=== PATIENT | female | born 1965 | race Caucasian/White ===

== ENCOUNTER 2018-05-03 15:16 | Emergency (ER) | payer BC ==
--- NOTE | 2018-05-03 16:12 | ED ---
Lower Extremity - HPI Summary HPI Summary: This is scribe Bryanna Rajan documenting for attending Ginna Pressley MD This patient is a 52 year old F presenting to [facility] accompanied by her and son with a chief complaint of right foot pain and swelling after her 100 lb son accidentally stepped on the lateral aspect of her foot while she was sleeping at 07:00 this morning. She states she heard a pop, and that the pain is at the dorsal aspect along the fourth and fifth metatarsals that radiates into the frontal aspect of the RLE. Pain is 6/10 in severity currently and is an 8/10 or 9/10 with weight bearing. She took 3 pills of Advil afterwards. She denies having any other symptoms at this time, including CP, SOB, and dizziness. I, Dr. Pressley ,personally performed the services described in this documentation as scribed in my presence and it is both accurate and complete - History of Current Complaint Chief Complaint: EDExtremityLower Stated Complaint: RT FOOT INJURY Time Seen by Provider: 05/03/18 15:30 Hx Obtained From: Patient Hx Last Menstrual Period: ~1 WEEK AGO Mechanism Of Injury: Other - son stepped on foot Onset of Pain: Immediate Onset/Duration: Still Present Severity Initially: Severe Severity Currently: Moderate Pain Intensity: 6 Pain Scale Used: 0-10 Numeric Timing: Constant Location: Is Discrete @ - dorsal aspect of right foot over forth and fifth metatrsals, radiates to front RLE Associated Signs And Symptoms: Positive: Negative Aggravating Factor(s): Weight Bearing Alleviating Factor(s): Nothing Able to Bear Weight: Yes - Allergies/Home Medications Allergies/Adverse Reactions: Allergies Allergy/AdvReac Type Severity Reaction Status Date / Time MS Azithromycin [From Z-Oni] Allergy Stomach Verified 05/03/18 15:20 Cramps PMH/Surg Hx/FS Hx/Imm Hx Previously Healthy: No Endocrine/Hematology History: Denies: Hx Anticoagulant Therapy Respiratory History: Reports: Hx Asthma - Cancer History Hx Chemotherapy: No Hx Radiation Therapy: No - Surgical History Surgery Procedure, Year, and Place: CHOLECYSTECTOMY Infectious Disease History: No Infectious Disease History: Reports: Traveled Outside the [place] in Last 30 Days - [place] - Family History Known Family History: Positive: Hypertension - both parents, Diabetes, Other - glaucoma - mother and grandfather Family History: sister - rectal CA, grandmother - vaginal CA - Social History Lives: With Family Alcohol Use: None Substance Use Type: Reports: None Smoking Status (MU): Never Smoked Tobacco Review of Systems Constitutional: Negative Negative: Chest Pain Negative: Shortness Of Breath Gastrointestinal: Negative Positive: Arthralgia, Myalgia - right foot pain Skin: Negative Neurological: Negative - dizziness Psychological: Normal All Other Systems Reviewed And Are Negative: Yes Physical Exam - Summary Physical Exam Summary: Appearance: Well-appearing, minimal pain distress, well-nourished, Skin: Warm, color reflects adequate perfusion, dry Head: Normal Head/Face inspection, atraumatic Eyes: Conjunctiva clear ENT: Normal inspection Neck: Supple, no nodes, no JVD Respiratory: Lungs clear, normal breath sounds, no respiratory distress Cardio: RRR, No murmur, pulses normal, brisk capillary refill Abdomen: Soft, nontender Bowel sounds: Present Musculoskeletal: Strength Intact/ROM intact, no calf tenderness, no edema. Tender to right 4th and 5th metatarsals. No ecchymosis. Psychological: Normal Neuro: Alert, muscle tone normal, no focal deficit Triage Information Reviewed: Yes Vital Signs On Initial Exam: Initial Vitals Temp Pulse Resp BP Pulse Ox 97.8 F 79 16 131/66 98 18 15:18 05/03/18 15:18 05/03/18 15:18 05/03/18 15:18 05/03/18 15:18 Vital Signs Reviewed: Yes Diagnostics - Vital Signs Vital Signs Temp Pulse Resp BP Pulse Ox 05/03/18 15:18 97.8 F 79 16 131/66 98 - Laboratory Lab Statement: Any lab studies that have been ordered have been reviewed, and results considered in the medical decision making process. - Radiology R FOOT XR Radiology Interpretation Completed By: Radiologist - SOFT TISSUE SWELLING, NO FRACTURE IS SEEN. ED Physician has reviewed this report. Re-Evaluation - Re-Evaluation First Re-Evaluation Time: 16:32 Change: Unchanged Comment: Informed patient of results. Pain is well controlled. Advised to follow up with Dr. Palmer as needed. Lower Extremity Course/Dx - Course Course Of Treatment: 52 year old F presenting to [facility] accompanied by her and son with a chief complaint of right foot pain and swelling after her son stepped on the lateral aspect of her foot while she was sleeping at 07: 00 this morning. An XR of the right foot is negative for fracture. Patient's pain is well controlled. She is instructed to follow up with Dr. Palmer, orthopedics, as needed. Patient will be discharged. Patient is agreeable. - Diagnoses Differential Diagnosis/HQI/PQRI: Positive: Contusion, Fracture (Closed), Sprain , Strain Provider Diagnoses: Contusion of right foot Discharge - Sign-Out/Discharge Documenting (check all that apply): Patient Departure - Discharge Plan Condition: Stable Disposition: HOME Patient Education Materials: Foot Sprain (ED) Referrals: Lesly Palmer MD [Medical Doctor] - If Needed Edward Villalpando EMBEDDER [Primary Care Provider] - 2 Days Additional Instructions: You may use ice, elevation and rest to help your right foot. You may continue ibuprofen as directed for pain. We have given you an ru bandage and a post op shoe. You may bear weight as tolerated. If your pain persists more than 2-3 days you should be re-evaluated by Bambi Villalpando or Dr. Palmer (orthopedist). Return to the ER if you have new or worsening symptoms. - Billing Disposition and Condition Condition: STABLE Disposition: Home
--- NOTE | 2018-05-03 16:21 | RAD ---
INDICATION: Right foot injury. TECHNIQUE: 3 views of the right foot were obtained. FINDINGS: There is dorsal and lateral soft tissue swelling. The bones are in normal alignment. No fracture is seen. Joint spaces appear maintained. IMPRESSION: SOFT TISSUE SWELLING, NO FRACTURE IS SEEN.
[2018-05-03 17:39] VITALS: BP 0/0
== END 2018-05-03 17:00 | disposition home or self-care (01) ==
LOC: ED 15:16
DX: S90.31XA Contusion of right foot, initial encounter (principal); W50.0XXA Accidental hit or strike by another person, initial encounter; Y93.84 Activity, sleeping; Y92.9 Unspecified place or not applicable; Z88.3 Allergy status to other anti-infective agents
CPT/HCPCS: 99281

== ENCOUNTER 2019-02-19 15:29 | Emergency (ER) | payer BC ==
[2019-02-19 16:05] VITALS: BP 129/83
[2019-02-19] MEDS ORDERED: Acetaminophen TAB* 325 MG PO ONE (16:28)
--- NOTE | 2019-02-19 16:28 | UC ---
Throat Pain/Nasal Aj HPI - HPI Summary HPI Summary: This patient is a 53-year-old female who presents to the urgent care with chief complaint of having sore throat, fevers, body aches since this morning. Patient denies any headache, denies any neck pain, denies any sinus congestion and occasionally she reports a dry cough. She also reports that she has a history infection for which the patient is already taking Monistat. However, she reports that she has an a slight burning with urination. She denies any back pain, denies any nausea vomiting. Patient has no other complaints. - History of Current Complaint Chief Complaint: UCGeneralIllness Stated Complaint: FEVER, ACHES Time Seen by Provider: 02/19/19 16:14 Hx Obtained From: Patient Hx Last Menstrual Period: ~1 WEEK AGO Severity: Moderate Pain Intensity: 7 - Allergies/Home Medications Allergies/Adverse Reactions: Allergies Allergy/AdvReac Type Severity Reaction Status Date / Time azithromycin Allergy Stomach Verified 02/19/19 16:05 Cramps Home Medications: Home Medications Ibuprofen TAB* [Motrin TAB* 600 MG] 600 mg PO Q6H PRN 02/19/19 [History Confirmed 02/19/19] PMH/Surg Hx/FS Hx/Imm Hx Previously Healthy: Yes GI/ History: Gastroesophageal Reflux Other History Of: Negative For: Anticoagulant Therapy - Surgical History Surgical History: Yes Surgery Procedure, Year, and Place: CHOLECYSTECTOMY, c-sec, ovarian cyst - Family History Known Family History: Positive: Hypertension - both parents, Diabetes, Other - glaucoma - mother and grandfather Family History: sister - rectal CA, grandmother - vaginal CA - Social History Alcohol Use: Rare Substance Use Type: None Smoking Status (MU): Never Smoked Tobacco Review of Systems All Other Systems Reviewed And Are Negative: Yes Constitutional: Positive: Negative Skin: Positive: Negative Eyes: Positive: Negative ENT: Positive: Sore Throat Respiratory: Positive: Negative Cardiovascular: Positive: Negative Gastrointestinal: Positive: Negative Genitourinary: Positive: Negative Motor: Positive: Negative Neurovascular: Positive: Negative Musculoskeletal: Positive: Negative Neurological: Positive: Negative Psychological: Positive: Negative Is Patient Immunocompromised?: No Physical Exam - Summary Physical Exam Summary: Vital signs: Reviewed Gen.: Patient is a obese female in no acute distress. Patient is sitting comfortably on the stretcher. Head: Normacephalic and atraumatic Eyes: PERRLA, EOMI x2. Ears: Right ear canal and TM WNL Left ear canal and TM WNL Nose Nose with dry mucosa and clear discharge. No sinus tenderness and mouth: positive pharyngeal erythema with no exudate. Neck: Supple, No JVD Lungs: CTA B/L CVS: S1 & S2 present. No murmurs appreciated. ABDOMEN: Soft NT w/ positive BS. EXT: FROM x 4 NEURO: A+O X 3 Triage Information Reviewed: Yes Appearance: Well-Appearing, No Pain Distress, Well-Nourished Vital Signs: Initial Vital Signs Temp 99.1 F 02/19/19 16:00 Pulse 101 02/19/19 16:00 Resp 18 02/19/19 16:00 BP 129/83 02/19/19 16:00 Pulse Ox 99 02/19/19 16:00 Throat Pain/Nasal Course/Dx - Course Course Of Treatment: Urinalysis with positive leukocytes. Rapid strep is negative. Therefore believe that the patient has a UTI, the patient will be given a prescription for Bactrim. She will be discharged home with follow-up with primary care physician. She was instructed to increase her water intake. She was also instructed to go to the emergency room if the symptoms worsen. The patient understands and agrees. - Differential Dx/Diagnosis Provider Diagnosis: UTI (urinary tract infection) Discharge - Sign-Out/Discharge Documenting (check all that apply): Patient Departure All imaging exams completed and their final reports reviewed: No Studies - Discharge Plan Condition: Stable Disposition: HOME Prescriptions: Sulfamethox/Trimethoprim DS* [Bactrim DS 800/160 TAB*] 1 tab PO BID #14 tab Patient Education Materials: Urinary Tract Infection in Women (ED) Referrals: Edward Villalpando, [employer] [Primary Care Provider] - Additional Instructions: Take medications as instructed Increase your fluid intake F/U with PCP in the next 2-3 days Return to the UC if symptoms worsen - Billing Disposition and Condition Condition: STABLE Disposition: Home
== END 2019-02-19 17:12 | disposition home or self-care (01) ==
LOC: UCEAST 15:29
DX: N39.0 Urinary tract infection, site not specified (principal); Z88.1 Allergy status to other antibiotic agents
CPT/HCPCS: 81003; 84702; 87086; 87651; 99212; A9270-GY; G0463

== ENCOUNTER 2019-03-29 12:16 | Emergency (ER) | payer BC ==
--- OUTSIDE RECORDS SUMMARY | 2019-03-29 12:25 | XMS REPORT | Continuity of Care Document ---
:1965 External Reference #:[id number] Author Name PAOLO Garcia Address [address] [place] [address] Care Team Providers Name Role Phone PAOLO Garcia Care Team Information Survey And Mapping Technician Unavailable Payers Date Identification Numbers Payment Provider Subscriber Effective: 2009 Policy Number: [id number] [employer] Expires: 2012 Group Name: Ryan Ocononr P.[address]anish[address] [address] PayID: [id number] GEMINI Jean Baptiste [id number] Effective: 2012 Policy Number: [id number] [employer] Group Name: Ryan Skinnero PTanishaOTanisha [address] [address] PayID: [id number] GEMINI Jean Baptiste [id number] Problems Active Problems Provider Date Acute stress disorder PAOLO Garcia Onset: 12/13/2011 Social History Type Date Description Comments Sex Unknown Lives With Son Lives With Spouse Diet Healthy, Well Balanced gave up sweets and ice cream, limits her red meat Pets 1 cat Occupation Unemployed 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 anita Potassium day for 10 days Storm, [employer] for infection 875-125mg Tablets Valtrex 1 by mouth twice a 14tabs B00.9 [facility] 03/[facility]2019 1gm Tablets day for 7 days if Storm, [employer] needed for cold sores Fluconazole 1 by mouth now, 2tabs [facility] 03/24/2019 150mg may repeat in 1 Storm, [employer] Tablets week if sx still present Albuterol Sulfate use one vial in 90ml J20.9 [facility] R. 03/16/2019 nebulizer every 4 Storm, [employer] (2.5mg/3ML) 0.083% hours if needed Nebulizer for breathing Nebulizer use to deliver 2units J20.9 [facility]. 03/16/2019 Kit/Tubing/Mouthpie albuterol via Storm, [employer] ce nebulizer four Kit times a day Flovent Diskus inhale one puff by 60units J18.9 [facility] 08/15/2017 mouth twice daily [facility], [employer] 100mcg/Blist as directed - Aerosol rinse mouth after use Spacer use as directed 1units J18.9 Karolyn P. 08/15/2017 for albuterol Camelia Rooney inhaler Ventolin HFA inhale two puffs 8.5units J20.9 [facility] R. 08/07/2017 by mouth every 4 Storm, [employer] 108(90Base) mcg/Act hours as needed Aerosol for wheeze Benzonatate 1 by mouth three 45caps J20.9 [facility] 08/07/2017 200mg times a day for Storm, [employer] Capsules cough Advil PM prn Shawnti R. 04/29/2014 200-25mg Storm, [employer] Capsules Zantac 1 by mouth bid for Shawnti R. 04/29/2014 150mg heart burn Storm, [employer] Tablets Vitamin D3 1 by mouth every Unknown 1000Unit day for vit d Tablets deficiency History Medications Fluconazole 1 by mouth now, 2tabs B37.3 [facility] R. 03/16/2019 - 150mg Tablets may repeat in 1 [facility] 03/23/2019 week if sx still present Nystatin apply small 30gm B37.3 [facility] R. 03/16/2019 - 517471Icvm/GM amount to vulva [facility] 03/23/2019 Cream three times daily until resolved Prednisone one pill by mouth 5tabs J20.9 [facility] R. 03/16/2019 - 50mg [facility] for [facility] Doxycycline Hyclate 1 take by mouth 20caps J01.90 [facility] 11/30/2018 - 100mg capsule 2 times MD Yolanda 03/24/2019 Capsules per day for 10 days for infection Prednisone 1 tab by mouth 4tabs J01.90 [facility] 11/30/2018 - 50mg Tablets daily for 4 days MD Yolanda 03/16/2019 Augmentin 1 take by mouth 20tabs J01.90 [facility] 11/23/2018 - 875-125mg tablet every 12 MD Yolanda 11/30/2018 Tablets hours for 10 days for infection Fluoxetine HCL (PMDD) 1 by mouth every 90caps Edward R. 04/27/2018 - morning [facility] 03/24/2019 10mg Capsules Nystatin 5 milliliters 200ml Karolyn Olivas 08/16/2017 - 477672Fkyd/ML swish and swallow Blegen M.D. 04/27/2018 Suspension four times a day x 7-10 days for thrush- please fill now Levofloxacin 1 tab by everyday 8tabs J18.9 Karolyn P. 08/15/2017 - 500mg for 8 days for Blegen, M.D. 11/14/2017 Tablets pneumonia Doxycycline Hyclate 1 by mouth twice 20caps J20.9 [facility] R. 08/07/2017 - 100mg a day for 10 days [facility] 08/15/2017 Capsules Penicillin V Potassium 1 tab by mouth 30tabs J02.0 [facility]ti R. 03/31/2017 - three times a day [facility] 04/10/2017 500mg Tablets x 10 days Penicillin V Potassium 1 tab by mouth 30tabs J02.0 Ching 01/08/2017 - three times a day Rojas, 03/31/2017 500mg Tablets x 10 days [employer] Amoxicillin 1 tablet twice a 20tabs J02.0 [facility] 12/24/2016 - 875mg Tablets day x 10 days Rojas, 01/08/2017 [employer] Augmentin 1 by mouth twice 20tabs J18.9 [facility] R. 06/20/2016 - 875-125mg a day for [facility], [employer] 06/30/2016 Tablets infection Benzonatate 1 by mouth three 30caps J18.9 [facility] 06/20/2016 - 200mg times a day for Storm, [employer] 03/31/2017 Capsules cough Xyzal 1by mouth every 90tabs J30.9 [facility] R. 05/30/2016 - 5mg Tablets day [facility], [employer] 11/14/2017 Sonata 1 po QHS if 30caps G47.00 [facility] R. 04/26/2016 - 5mg Capsules needed for sleep [facility], [employer] 12/24/2016 Benzonatate 1 by mouth three 30caps J06.9 [facility] R. 04/26/2016 - 200mg times a day for [facility], [employer] 05/06/2016 Capsules cough Sulfacetamide Sodium 2 drops both eyes 1bottle 372.03 [facility] RTanisha 2014 - 10% 4 times daily for Kwasi, [employer] 04/26/2016 Solution 5 days Nasonex 2 sprays each 17gm J30.9 [facility] 01/24/2015 - 50mcg/Act nostril daily for Roajs, 11/14/2017 Suspension rhinitis [employer] Sulfamethoxazole/Trime 1 by mouth twice 10tabs 599.0 Namelizabeth RTanisha 2014 - thoprim DS a day for [facility], [employer] 12/04/2014 800-160mg infection, take Tablets for 5 days Pyridium 1 by mouth three 30tabs 599.0 Namwntmara RTanisha 11/24/2014 - 100mg Tablets times a day as [facility], [employer] 01/24/2015 needed bladder and kidney pain Fluoxetine HCL 1 by mouth every 90caps F33.0 [facility] R. 11/24/2014 - 20mg day [facility] 12/24/2016 Capsules Augmentin 1 by mouth twice 20tabs 486 [facility] R. 10/31/2014 - 875-125mg a day for [facility], [facility] 11/10/2014 Tablets infection Benzonatate 1 by mouth three 30caps 486 [facility] R. 10/31/2014 - 200mg times a day for [facility], [facility] 11/10/2014 Capsules cough Amoxicillin 1 by mouth three 30tabs 461.8 [facility] 08/04/2014 - 500mg Tablets times a day for [facility], [facility] 08/14/2014 10 days for infection Claritin 1 by mouth daily J30.9 [facility] R. 04/29/2014 - 10mg Capsules for allergies prn [facility] 05/30/2016 Finacea apply to face [facility] 04/29/2014 - 15% Gel daily for rosacea [facility], [facility] 01/24/2015 Lutein 20 2 daily [facility] R 04/29/2014 - Capsules [facility] 04/26/2016 Ammonium Lactate apply to feet [facility] R 04/29/2014 - 12% every night at [facility] 12/24/2016 Cream bedtime if needed Nystatin-Triamcinolone apply small 30gm 616.10 [facility] R 04/16/2014 - amount to [facility] 04/26/2016 876756-1.1Unit/GM-% affected are Ointment three times daily until resolved Lanicaine [facility] to affected [facility] 10/05/2012 - area as needed [facility] 04/29/2014 Nabumetone take one pill 30tabs 723.1 [facility] R 06/16/2012 - 750mg Tablets daily with food [facility] 04/29/2014 for neck pain Cyclobenzaprine HCL 1/2 or 1 po QHS 15tabs 723.1 [facility] R 05/21/2012 - 10mg prn muscle spasm [facility] 06/16/2012 Tablets Prozac take one capsule 90caps 311 [facility]. 04/20/2012 - 10mg Capsules by mouth every [facility], [facility] 04/29/2014 morning for anxiety and stress Amoxicillin 1 po tid for 30caps [facility] R. 03/10/2012 - 500mg infection [facility], [facility] 04/20/2012 Capsules Guaifenesin/Codeine 1-2 tsp po q6hrs 150ml Edward R. 03/05/2012 - prn cough [facility], [facility] 04/20/2012 100-10mg/5ML Syrup Alprazolam 1/2 or 1 po tid 30thirty 300.00 Edward R. 12/20/2011 - 0.25mg Tablets prn anxiety [facility], [facility] 10/05/2012 Gentamicin Sulfate 1 cm ribbon qid 1tube 373.11 Edward R. 10/28/2011 - 0.1% left eye for 5 [facility], [facility] 04/20/2012 Ointment days or until resolved Meclizine HCL 1 po q6hr prn 30tabs 386.10 [facility] R. 10/01/2011 - 25mg dizziness [facility], [facility] 10/05/2012 Tablets Melatonin CR qhs [facility] R. 09/30/2011 - 3mg Tablets [facility], [facility] 10/05/2012 ER Omeprazole 1 po qd-ac for 30caps 786.51 Edward RTanisha 07/18/2011 - 20mg Capsules stomach acid [facility], [facility] 04/29/2014 Alprazolam 1/2 or 1 po bid 20twenty 300.00 Namwntmara R. 03/26/2011 - 0.25mg Tablets prn anxiety [facility], [facility] 12/20/2011 Nystatin/Triamcinolone apply pea sized 1tube 625.70 Edward RTanisha 03/07/2011 - amount to [facility], [facility] 10/05/2012 038354-7.1Unit/GM-% affected area bid Cream prn itching Nystatin apply to affected 1bottle 112.89 Edward RTanisha 03/07/2011 - 462312Lgea/GM area tid until Storm, [facility] 10/05/2012 Powder resolved Robitussin ac 1-2 tsp po q4-6hr 150ml 466.0 Shawnti R. 02/08/2011 - prn cough/pain Storm, [facility] 04/20/2012 Tessalon Perles 1 po tid prn 30caps 466.0 [facility]ti R. 02/08/2011 - 100mg cough Storm, [facility] 04/20/2012 Capsules Amoxicillin/Potassium 1 po bid for 20tabs 466.0 [facility] R. 02/04/2011 - Clavulanate infection Storm, [facility] 02/14/2011 875-125mg Tablets Tessalon Perles 1 po tid prn 30caps 466.0 Shawnti R. 08/10/2010 - 100mg cough Storm, [facility] 10/15/2010 Capsules Prozac 1 po qd 90caps 311 Shawnti R. 08/10/2010 - 20mg Capsules [facility], [facility] 04/20/2012 Amoxicillin/Potassium 1 po bid for 20tabs 466.0 Shawnti R. 08/06/2010 - Clavulanate infection Storm, [facility] 08/16/2010 875-125mg Tablets Amoxicillin/Potassium 1 po bid for 20tabs 466.0 Shawnti R. 06/11/2010 - Clavulanate bronchitis Storm, [facility] 06/21/2010 875-125mg Tablets Robitussin ac 1-2 tsp po q4-6hr 150ml 466.0 Shawnti R. 06/11/2010 - prn cough/pain Storm, [facility] 08/16/2010 Benzonatate 1 po tid prn 30caps 465.9 [facility]ti R. 11/24/2009 - 100mg cough Storm, [facility] 12/04/2009 Capsules Ofloxacin 1 po bid for 20tabs 466.0 Shawnti R. 10/12/2009 - 400mg Tablets bronchial Storm, [facility] 10/22/2009 pneumomonia, replaces doxycycline, take for 10 days Nystatin apply to affected 2Bottles 782.1 [facility]ti R. 10/12/2009 - 764129Sboi/GM area tid until Kwasi [facility] 10/05/2012 Powder resolved Robitussin ac 1-2 tsp po q4-6hr 150ml 466.0 [facility] R. 10/12/2009 - prn cough/pain K[facility] 10/22/2009 Apri 1 po daily [facility] R. 10/09/2009 - 0.15-30mg-mcg [facility] 10/05/2012 Tablets Doxycycline Hyclate 1 po bid for 20caps 466.0 [facility] R. 10/09/2009 - 100mg infection [facility] 10/12/2009 Capsules Ventolin HFA 1 puff q4hr prn 1units 466.0 [facility]. 10/09/2009 - 108(90Base) cough, wheeze, Kwasi [facility] 08/07/2017 mcg/ac Aerosol shortness of breath No Work no work until 466.0 [facility]. 10/09/2009 - feeling better Kwasi [facility] 10/19/2009 and fever free for at least 24 hours, will likely miss several days Ergocalciferol Tablets 1 po twice weekly 8tabs [facility] R. 08/15/2009 - for vitamin d [facility] 10/09/2009 50,000Units Tablets deficiency, repeat level in 4 weeks Valtrex 1 by mouth twice 14tabs B00.9 [facility] R. 08/10/2009 - 1gm Tablets a day for 7 days [facility] 04/27/2018 if needed for cold sores Fluoxetine HCL (PMDD) 1 by mouth daily 90caps [facility] R. - for anxiety and [facility] 04/27/2018 20mg Capsules depression Zinc Unknown - 30mg Capsules 03/24/2019 Immunizations CPT Code Status Date Vaccine Lot # [id number] Given 10/09/2017 Influenza Virus Vaccine, Quadrivalent, 3 Yr > Quad, Preserv Free 25863 Given 07/01/2014 Influenza Virus Vaccine, Quadrivalent, 3 Yr > [id number] Quad, Preserv Free 11688 Given 07/18/2011 Influenza Vaccine-Preservative Free 3 Yrs And [id number] Above 31708 Given 07/24/2010 Influenza Vaccine-Preservative Free 3 Yrs And [id number] Above 71693 Given 09/25/2009 Tdap (Adacel) [id number] Refused 01/09/2016 Influenza Virus Vaccine, Quadrivalent, 3 Yr > Quad , Preserv Free Vital Signs Date Vital Result Comment 03/24/2019 11:44am Weight 235.00 lb Weight 106.596 kg BP Systolic 122 mmHg BP Diastolic 80 mmHg Heart Rate 86 /min Body Temperature 99.1 F Respiratory Rate 18 /min O2 % BldC Oximetry 98 % 03/16/2019 4:45pm Weight 233.00 lb Weight 105.689 kg BP Systolic 130 mmHg BP Diastolic 80 mmHg Heart Rate 116 /min Body Temperature 102.2 F Respiratory Rate 20 /min O2 % BldC Oximetry 96 % 11/30/2018 4:19pm Weight 238.25 lb Weight 108.070 kg BP Systolic 112 mmHg BP Diastolic 78 mmHg Heart Rate 86 /min Body Temperature 97.4 F Respiratory Rate 16 /min O2 % BldC Oximetry 97 % 11/23/2018 8:47am Weight 240.00 lb Weight 108.864 kg BP Systolic 110 mmHg BP Diastolic 70 mmHg Heart Rate 78 /min Body Temperature 97.6 F Respiratory Rate 16 /min O2 % BldC Oximetry 98 % 04/27/2018 4:13pm Weight 228.00 lb Weight 103.421 kg BP Systolic 108 mmHg BP Diastolic 78 mmHg Heart Rate 96 /min Body Temperature 98.1 F 11/14/2017 9:51am Weight 226.00 lb Weight 102.514 kg BP Systolic 112 mmHg BP Diastolic 80 mmHg Body Temperature 9637.3 F Height 63 inches 5'3" BMI (Body Mass Index) 40.0 kg/m2 08/15/2017 12:13pm Weight 233.00 lb Weight 105.689 kg BP Systolic 128 mmHg BP Diastolic 74 mmHg Heart Rate 100 /min Body Temperature 99.8 F Respiratory Rate 20 /min 08/07/2017 9:30am Weight 233.00 lb Weight 105.689 kg BP Systolic 133 mmHg BP Diastolic 80 mmHg Heart Rate 104 /min Body Temperature 98.7 F O2 % BldC Oximetry 97 % 03/31/2017 4:01pm Weight 244.00 lb Weight 110.678 kg Heart Rate 95 /min Body Temperature 97.0 F Respiratory Rate 16 /min O2 % BldC Oximetry 99 % 01/08/2017 10:23am Weight 239.00 lb Weight 108.410 kg BP Systolic 120 mmHg BP Diastolic 80 mmHg Heart Rate 102 /min Body Temperature 98.7 F Respiratory Rate 16 /min O2 % BldC Oximetry 98 % 12/24/2016 9:01am Weight 240.00 lb Weight 108.864 kg BP Systolic 138 mmHg BP Diastolic 96 mmHg Heart Rate 119 /min Body Temperature 101.8 F Respiratory Rate 18 /min O2 % BldC Oximetry 97 % 06/20/2016 1:34pm Weight 240.00 lb Weight 108.864 kg BP Systolic 117 mmHg BP Diastolic 80 mmHg Heart Rate 112 /min Body Temperature 98.2 F O2 % BldC Oximetry 98 % 05/30/2016 4:16pm Weight 238.00 lb Weight 107.957 kg BP Systolic 112 mmHg BP Diastolic 68 mmHg Heart Rate 86 /min Body Temperature 98.6 F Respiratory Rate 18 /min O2 % BldC Oximetry 98 % 04/26/2016 8:44am Weight 239.00 lb Weight 108.410 kg BP Systolic 110 mmHg BP Diastolic 90 mmHg Heart Rate 98 /min Height 62.5 inches 5'2.50" BMI (Body Mass Index) 43.0 kg/m2 Last Menstrual Period [id number] O2 % BldC Oximetry 98 % 01/09/2016 10:33am Weight 236.00 lb Weight 107.050 kg BP Systolic 126 mmHg BP Diastolic 90 mmHg Heart Rate 68 /min 10/16/2015 9:28am Weight 238.00 lb Weight 107.957 kg BP Systolic 117 mmHg BP Diastolic 79 mmHg Heart Rate 88 /min Body Temperature 99.0 F 02/16/2015 11:04am Weight 236.00 lb Weight 107.050 kg BP Systolic 120 mmHg BP Diastolic 80 mmHg Heart Rate 91 /min Body Temperature 97.8 F O2 % BldC Oximetry 98 % 01/24/2015 9:51am Weight 235.00 lb Weight 106.596 kg BP Systolic 120 mmHg BP Diastolic 80 mmHg Heart Rate 94 /min Body Temperature 97.7 F O2 % BldC Oximetry 98 % 11/24/2014 9:16am Weight 232.00 lb Weight 105.235 kg BP Systolic 118 mmHg BP Diastolic 80 mmHg Heart Rate 76 /min Body Temperature 97.7 F Last Menstrual Period [id number] 10/31/2014 10:56am Weight 231.00 lb Weight 104.782 kg BP Systolic 120 mmHg BP Diastolic 80 mmHg Heart Rate 94 /min Body Temperature 98.0 F O2 % BldC Oximetry 98 % 08/04/2014 9:21am Weight 231.00 lb Weight 104.782 kg BP Systolic 120 mmHg BP Diastolic 70 mmHg Heart Rate 92 /min Body Temperature 98.9 F O2 % BldC Oximetry 98 % 04/29/2014 8:50am Weight 224.00 lb Weight 101.606 kg BP Systolic 118 mmHg BP Diastolic 80 mmHg Heart Rate 72 /min Height 63 inches 5'3" BMI (Body Mass Index) 39.7 kg/m2 Last Menstrual Period [id number] 04/16/2014 9:48am Weight 222.00 lb Weight 100.699 kg BP Systolic 124 mmHg BP Diastolic 76 mmHg Heart Rate 80 /min Body Temperature 97.6 F 10/05/2012 9:03am Weight 238.00 lb Weight 107.957 kg BP Systolic 106 mmHg BP Diastolic 74 mmHg Heart Rate 104 /min Height 63.5 inches 5'3.50" BMI (Body Mass Index) 41.5 kg/m2 Last Menstrual Period [id number] 07/27/2012 11:53am Weight 234.00 lb W/Boots Weight 106.142 kg BP Systolic 122 mmHg BP Diastolic 90 mmHg Heart Rate 72 /min 06/16/2012 2:07pm Weight 235.00 lb Weight 106.596 kg BP Systolic 100 mmHg BP Diastolic 76 mmHg Heart Rate 100 /min 05/21/2012 2:49pm Weight 237.00 lb Weight 107.503 kg BP Systolic 112 mmHg BP Diastolic 70 mmHg Heart Rate 108 /min Body Temperature 97.7 F 05/04/2012 10:58am Weight 235.00 lb Weight 106.596 kg BP Systolic 124 mmHg BP Diastolic 76 mmHg Heart Rate 84 /min Height 62.5 inches 5'2.50" BMI (Body Mass Index) 42.3 kg/m2 04/20/2012 11:48am Weight 234.00 lb Weight 106.142 kg BP Systolic 106 mmHg BP Diastolic 80 mmHg Heart Rate 88 /min 03/05/2012 11:31am Weight 235.00 lb Weight 106.596 kg BP Systolic 118 mmHg BP Diastolic 68 mmHg Heart Rate 84 /min Body Temperature 97.4 F O2 % BldC Oximetry 97 % 12/13/2011 11:18am Weight 241.00 lb Weight 109.318 kg BP Systolic 122 mmHg BP Diastolic 80 mmHg Heart Rate 82 /min Body Temperature 98.3 F 10/28/2011 10:35am Weight 236.00 lb Weight 107.050 kg BP Systolic 112 mmHg BP Diastolic 70 mmHg Heart Rate 64 /min 10/15/2011 11:48am Weight 232.00 lb Weight 105.235 kg BP Systolic 120 mmHg BP Diastolic 70 mmHg Heart Rate 64 /min Body Temperature 98.2 F 10/01/2011 11:22am BP Systolic 110 mmHg BP Diastolic 60 mmHg Heart Rate 70 /min O2 % BldC Oximetry 98 % 09/30/2011 10:48am Weight 233.00 lb Weight 105.689 kg BP Systolic 118 mmHg BP Diastolic 78 mmHg Heart Rate 70 /min 09/09/2011 9:34am Weight 234.00 lb Weight 106.142 kg BP Systolic 120 mmHg BP Diastolic 80 mmHg Heart Rate 68 /min 08/08/2011 10:00am Weight 238.00 lb Weight 107.957 kg BP Systolic 112 mmHg BP Diastolic 74 mmHg Heart Rate 90 /min 07/18/2011 10:49am Weight 237.00 lb Weight 107.503 kg BP Systolic 110 mmHg BP Diastolic 78 mmHg Heart Rate 96 /min Body Temperature 98.0 F 03/26/2011 9:58am Weight 238.00 lb Weight 107.957 kg BP Systolic 110 mmHg BP Diastolic 70 mmHg Heart Rate 92 /min Body Temperature 97.5 F 03/07/2011 2:13pm Weight 236.00 lb Weight 107.050 kg BP Systolic 126 mmHg BP Diastolic 70 mmHg Heart Rate 104 /min Body Temperature 98.7 F 02/04/2011 9:49am Weight 233.00 lb Weight 105.689 kg BP Systolic 124 mmHg BP Diastolic 82 mmHg Heart Rate 86 /min Body Temperature 98.0 F O2 % BldC Oximetry 98 % at room air 12/28/2010 11:46am Weight 233.00 lb Weight 105.689 kg BP Systolic 124 mmHg BP Diastolic 74 mmHg Heart Rate 84 /min Body Temperature 98.5 F O2 % BldC Oximetry 98 % AT Room Air 08/27/2010 2:16pm Weight 237.00 lb Weight 107.503 kg BP Systolic 110 mmHg BP Diastolic 68 mmHg Heart Rate 88 /min 08/10/2010 3:19pm Weight 236.00 lb Weight 107.050 kg BP Systolic 102 mmHg BP Diastolic 70 mmHg Heart Rate 112 /min Body Temperature 98.3 F O2 % BldC Oximetry 98 % AT Room Air 08/06/2010 10:54am Weight 236.00 lb Weight 107.050 kg BP Systolic 116 mmHg BP Diastolic 76 mmHg Heart Rate 80 /min Body Temperature 98.0 F O2 % BldC Oximetry 98 % AT Room Air 2ND O2 After Neb 98 AT Room Air 07/24/2010 10:07am Weight 235.00 lb Weight 106.596 kg BP Systolic 114 mmHg BP Diastolic 66 mmHg Heart Rate 92 /min Body Temperature 97.8 F 06/11/2010 11:04am Weight 237.00 lb Weight 107.503 kg BP Systolic 126 mmHg BP Diastolic 72 mmHg Heart Rate 90 /min Body Temperature 97.0 F O2 % BldC Oximetry 98 % 11/24/2009 3:39pm Weight 227.00 lb Weight 102.967 kg BP Systolic 112 mmHg BP Diastolic 74 mmHg Heart Rate 80 /min Body Temperature 98.7 F O2 % BldC Oximetry 98 % AT Room Air 10/12/2009 12:01pm Weight 230.00 lb Weight 104.328 kg BP Systolic 122 mmHg BP Diastolic 80 mmHg Heart Rate 92 /min Body Temperature 99.0 F 10/09/2009 12:23pm Weight 230.00 lb Weight 104.328 kg BP Systolic 116 mmHg BP Diastolic 70 mmHg Heart Rate 96 /min Body Temperature 99.4 F 08/10/2009 8:11am Weight 239.00 lb Weight 108.410 kg BP Systolic 112 mmHg BP Diastolic 80 mmHg Heart Rate 84 /min Height 63 inches 5'3" BMI (Body Mass Index) 42.3 kg/m2 Results Test Date Facility Test Result H/L Range Note Urine DIP 03/16/2019 [facility] House Lab Leukocytes neg Neg (607)- - Urine Nitrites neg Neg Urobilinogen norm Norm Total Protein Urine neg Neg Urine pH 9 High 5-6 Urine Blood trace Neg Specific Lyndon 1.005 Low 1.01-1.02 Urine Ketones neg Neg Urine Bilirubin neg Neg Urine Glucose norm Norm Urine Culture And 02/19/2019 [facility] Urine SEE RESULT 1, 2 Sensitivities [phone] Culture BELOW Laboratory test 02/19/2019 [facility] Poc Negative Negative 3 finding [phone] , Urine Poc Urinalysis 02/19/2019 [facility] Poc Negative Negative [phone] Glucose, Urine Poc Bilirubin, Urine Negative Negative Poc Ketone, Urine Negative Negative Poc Specific Lyndon, Urine 1.015 N 1.010-1.030 Poc Blood, Urine Trace-intact Abnormal Negative Poc pH, Urine 7.5 N 5-9 Poc Protein, Urine Negative Negative Poc Urobilinogen, Urine 0.2 Negative Poc Nitrite, Urine Negative Negative Poc Leukocytes, Urine 3+ Abnormal Negative Poc Color, Urine Light yellow Poc Clarity, Urine Clear 4 Laboratory test 02/19/2019 [facility] Rapid Strep Negative Negative 5 finding [phone] Molecular Laboratory test 12/04/2017 [facility] Surgical SEE RESULT 6 finding [phone] Pathology BELOW Laboratory test 11/14/2017 [facility] Cytology SEE RESULT 7, 8 finding [phone] BELOW CBC Auto Diff 08/25/2017 [facility] White Blood 7.8 10^3/uL N 3.5-10.8 [phone] Count Red Blood Count 2.74 10^6/uL Low 4.0-5.4 Hemoglobin 12.4 g/dL N 12.0-16.0 Hematocrit 26 % Low 35-47 Mean Corpuscular Volume 94 fL N 80-97 Mean Corpuscular Hemoglobin 45 pg High 27-31 Mean Corpuscular HGB Conc 48 g/dL High 31-36 Red Cell Distribution Width 14 % N 10.5-15 Abs Neutrophils 4.4 10^3/uL N 1.5-7.7 Abs Lymphocytes 2.3 10^3/uL N 1.0-4.8 Abs Monocytes 0.6 10^3/uL N 0-0.8 Abs Eosinophils 0.4 10^3/uL N 0-0.6 Abs Basophils 0.1 10^3/uL N 0-0.2 Abs Nucleated RBC 0.01 10^3/uL Granulocyte % 56.2 % N 38-83 Lymphocyte % 29.3 % N 25-47 Monocyte % 8.2 % N 1-9 Eosinophil % 5.6 % N 0-6 Basophil % 0.7 % N 0-2 Nucleated Red Blood Cells % 0.1 Platelet Count 570 10^3/uL High 150-450 9 Comp Metabolic Panel 08/25/2017 [facility] Sodium 136 mmol/L N 133-145 [phone] Potassium 4.1 mmol/L N 3.5-5.0 Chloride 103 mmol/L N 101-111 Co2 Carbon Dioxide 25 mmol/L N 22-32 Anion Gap 8 mmol/L N 2-11 Glucose 91 mg/dL N 70-100 Blood Urea Nitrogen 12 mg/dL N 6-24 Creatinine 0.65 mg/dL N 0.51-0.95 BUN/Creatinine Ratio 18.5 N 8-20 Calcium 9.1 mg/dL N 8.6-10.3 Total Protein 7.6 g/dL N 6.4-8.9 Albumin 3.9 g/dL N 3.2-5.2 Globulin 3.7 g/dL N 2-4 Albumin/Globulin Ratio 1.1 N 1-3 Total Bilirubin 0.40 mg/dL N 0.2-1.0 Alkaline Phosphatase 118 U/L High 34-104 Alt 19 U/L N 7-52 Ast 19 U/L N 13-39 Egfr Non- 96.5 >60 Egfr 124.1 >60 10 Laboratory test 08/25/2017 [facility] C Reactive 15.84 mg/L High < 5.00 11 finding [phone] Protein Laboratory test 03/31/2017 [facility] Strep Screen neg Neg finding (607)- - Laboratory test 01/08/2017 [facility] Strep Screen positive Neg finding (607)- - Laboratory test 12/24/2016 [facility] House [facility] Strep Screen pos Neg finding (607)- - Laboratory test 05/30/2016 [facility] House [facility] Strep Screen NEG Neg finding (607)- - CBC Auto Diff 04/26/2016 [facility] White Blood 7.9 10^3/uL N 3.5-10.8 [phone] Count Red Blood Count 4.61 10^6/uL N 4.0-5.4 Hemoglobin 14.0 g/dL N 12.0-16.0 Hematocrit 41 % N 35-47 Mean Corpuscular Volume 89 fL N 80-97 Mean Corpuscular Hemoglobin 30 pg N 27-31 Mean Corpuscular HGB Conc 34 g/dL N 31-36 Red Cell Distribution Width 13 % N 10.5-15 Platelet Count 473 10^3/uL High 150-450 Mean Platelet Volume 7 um3 Low 7.4-10.4 Abs Neutrophils 3.4 10^3/uL N 1.5-7.7 Abs Lymphocytes 3.2 10^3/uL N 1.0-4.8 Abs Monocytes 0.7 10^3/uL N 0-0.8 Abs Eosinophils 0.5 10^3/uL N 0-0.6 Abs Basophils 0.1 10^3/uL N 0-0.2 Abs Nucleated RBC 0 10^3/uL N Granulocyte % 42.9 % N 38-83 Lymphocyte % 40.8 % N 25-47 Monocyte % 9.4 % High 1-9 Eosinophil % 5.9 % N 0-6 Basophil % 1.0 % N 0-2 Nucleated Red Blood Cells % 0 N Comp Metabolic Panel 04/26/2016 [facility] Sodium 138 mmol/L N 133-145 [phone] Potassium 4.0 mmol/L N 3.5-5.0 Chloride 102 mmol/L N 101-111 Co2 Carbon Dioxide 27 mmol/L N 22-32 Anion Gap 9 mmol/L N 2-11 Glucose 92 mg/dL N 70-100 Blood Urea Nitrogen 11 mg/dL N 6-24 Creatinine 0.71 mg/dL N 0.51-0.95 BUN/Creatinine Ratio 15.5 N 8-20 Calcium 9.0 mg/dL N 8.6-10.3 Total Protein 7.1 g/dL N 6.4-8.9 Albumin 3.9 g/dL N 3.2-5.2 Globulin 3.2 g/dL N 2-4 Albumin/Globulin Ratio 1.2 N 1-3 Total Bilirubin 0.20 mg/dL N 0.2-1.0 Alkaline Phosphatase 124 U/L High 34-104 Alt 28 U/L N 7-52 Ast 24 U/L N 13-39 Egfr Non- 87.5 N >60 Egfr 112.5 N >60 12 Lipid Profile 04/26/2016 [facility] Triglycerides 335 mg/dL N 13 (Trig/Chol/HDL) [phone] Cholesterol 197 mg/dL N 14 HDL Cholesterol 47.9 mg/dL N 15 LDL Cholesterol 82 mg/dL N 16 Laboratory test 04/26/2016 [facility] TSH 1.54 N 0.34-5.60 17 finding [phone] (Thyroid mcIU/mL Stim Horm) Laboratory test 02/16/2015 In House Lab Strep NEG Neg finding (607)- - Screen Laboratory test 02/11/2015 [facility] Throat-Beta SEE RESULT 18 finding [phone] Strept BELOW Laboratory test 01/24/2015 In House Lab Strep NEG Neg finding (607)- - Screen Urine Culture And 11/24/2014 [facility] Urine (SEE NOTE) 19 Sensitivities [phone] Culture Urine DIP 11/24/2014 In House Lab Specific 1.025 High 1.01-1.02 (607)- - Lyndon Urine pH 6 5-6 Leukocytes TRACE Neg Urine Nitrites NEG Neg Total Protein, Urine TRACE Neg Urine Glucose NORM Norm Urine Ketones NEG Neg Urobilinogen NORM Norm Urine Bilirubin NEG Neg Urine Blood 250 High Neg HPV High 04/29/2014 [facility] Human Papillomavirus See Comment N 20 Risk [phone] Source HPV High Risk Type 16, PCR Negative N Negative HPV High Risk Type 18, PCR Negative N Negative HPV Other Risk types Negative N Negative 21 CBC No Diff 04/29/2014 [facility] White Blood 10.3 10 ^3/uL N 4.8-10.8 [phone] Count Red Blood Count 4.41 10^6/uL N 4.0-5.4 Hemoglobin 14.0 g/dL N 12.0-16.0 Hematocrit 40 % N 35-47 Mean Corpuscular Volume 90 fL N 80-97 Mean Corpuscular Hemoglobin 32 pg High 27-31 Mean Corpuscular HGB Conc 35 g/dL N 31-36 Red Cell Distribution Width 13 % N 10.5-15 Platelet Count 396 10^3/uL N 150-450 Mean Platelet Volume 7 um3 Low 7.4-10.4 Comp Metabolic Panel 04/29/2014 [facility] Sodium 137 mmol/L N 133-145 [phone] Potassium 4.1 mmol/L N 3.7-5.6 Chloride 102 mmol/L N 101-111 Co2 Carbon Dioxide 28 mmol/L N 22-32 Anion Gap 7 mmol/L N 2-11 Glucose 86 mg/dL N 70-100 Blood Urea Nitrogen 9 mg/dL N 6-24 Creatinine 0.67 mg/dL N 0.51-0.95 BUN/Creatinine Ratio 13.4 N 8-20 Calcium 9.1 mg/dL N 8.6-10.3 Total Protein 7.0 g/dL N 6.4-8.9 Albumin 3.8 g/dL N 3.2-5.2 Globulin 3.2 g/dL N 2-4 Albumin/Globulin Ratio 1.2 N 1-3 Total Bilirubin 0.40 mg/dL N 0.2-1.0 Alkaline Phosphatase 104 U/L N 34-104 Alt 11 U/L N 7-52 Ast 13 U/L N 13-39 Egfr Non- 94.3 N >60 Egfr 121.3 N >60 22 Laboratory test 04/29/2014 [facility] TSH (Thyroid 1.85 N 0.34-5.60 finding [phone] Stimulating Horm) IU/mL Lipid Profile 04/29/2014 [facility] Triglycerides 95 mg/dL N 23 (Trig/Chol/HDL) [phone] Cholesterol 156 mg/dL N 24 HDL Cholesterol 54.4 mg/dL N 25 LDL Cholesterol 83 mg/dL N 26 Urine DIP 04/29/2014 In House Lab Specific Lyndon 1.010 1.01-1.02 (607)- - Urine pH 6 5-6 Leukocytes NEG Neg Urine Nitrites NEG Neg Total Protein, Urine NEG Neg Urine Glucose NORM Norm Urine Ketones NEG Neg Urobilinogen NORM Norm Urine Bilirubin NEG Neg Urine Blood NEG Neg Laboratory test 04/29/2014 [facility] Cytology RUN DATE: finding [phone] 05/02/ <SEE NOTE> Urine DIP 10/05/2012 In House Lab Leukocytes POS Neg (607)- - Urine Nitrites NEG Neg Urine pH 5 5-6 Total Protein, Urine NEG Neg Urine Glucose NORM Norm Urine Ketones NEG Neg Urobilinogen NORM Norm Urine Bilirubin NEG Neg Urine Blood TRACE Neg Specific Lyndon NA Low 1.01-1.02 Laboratory test 10/05/2012 [facility] TSH (Thyroid 1.29 0.34-5.60 finding [phone] Stimulating Horm) miu/mL Lipid Profile 10/05/2012 [facility] Triglycerides 156 mg/dL 40-200 (Trig/Chol/HDL) [phone] Cholesterol 182 mg/dL Less than 200 HDL Cholesterol 58 mg/dL 40-60 28 Cholesterol/HDL Ratio 3.1 Average 1-4.44 LDL Cholesterol 92.8 mg/dL Less Than 100 29 Comp Metabolic Panel 10/05/2012 [facility] Sodium 134 mmol/L 133-145 [phone] Potassium 4.2 mmol/L 3.5-5.0 Chloride 105 mmol/L 101-111 Co2 Carbon Dioxide 24.0 mmol/L 22-32 Anion Gap 5.0 mmol/L 2-11 Glucose 98 mg/dL 70-100 Blood Urea Nitrogen 11 mg/dL 6-24 Creatinine 0.80 mg/dL 0.50-1.40 BUN/Creatinine Ratio 13.8 8-20 Calcium 9.3 mg/dL 8.1-9.9 Total Protein 6.6 g/dL 6.2-8.1 Albumin 3.8 g/dL 3.6-5.4 Globulin 2.8 g/dL 2-4 Albumin/Globulin Ratio 1.4 1-3 Total Bilirubin 0.4 mg/dL 0.4-1.5 Alkaline Phosphatase 102 U/L 30-110 Alt 28 U/L 14-54 Ast 25 U/L 12-42 Egfr Non- 77.2 >60 Egfr 99.3 >60 30 CBC No Diff 10/05/2012 [facility] White Blood 8.6 10^ 3/uL 4.8-10.8 [phone] Count Red Blood Count 4.50 10^6/uL 4.0-5.4 Hemoglobin 13.7 g/dL 12.0-16.0 Hematocrit 40 % 35-47 Mean Corpuscular Volume 90 fL 80-97 Mean Corpuscular Hemoglobin 31 pg 27-31 Mean Corpuscular HGB Conc 34 g/dL 31-36 Red Cell Distribution Width 13 % 10.5-15 Platelet Count 380 10^3/uL 150-450 Mean Platelet Volume 7 um3 Low 7.4-10.4 Laboratory test 06/16/2012 [facility] Erythrocyte Sed 52 MM/HR High 0-15 finding [phone] Rate Lyme Western 04/20/2012 [facility] Lyme Igg Negative Negative Blot Specialty [phone] Western Blot Lyme Igg Bands Detected p23, kDa () Lyme Igm Western Blot Negative Negative Lyme Igm Bands Detected No bands detecte <SEE NOTE> kDa () 31 Lyme Disease Interpretation . () 32 Laboratory test 03/26/2011 In House Lab Strep Screen NEG Neg finding (607)- - Laboratory test 03/26/2011 [facility] Throat Culture NF 33 finding [phone] Full Laboratory test 03/07/2011 [facility] Cytology ------ ---- 34, 35 finding [phone] ------ <SEE NOTE> Genital Culture NF3 36 Urine DIP 03/07/2011 In House Lab Leukocytes NEG Neg (607)- - Urine Nitrites NEG Neg Urine pH 6 5-6 Total Protein, Urine NEG Neg Urine Glucose NORM Norm Urine Ketones NEG Neg Urobilinogen NORM Norm Urine Bilirubin NEG Neg Urine Blood 50+ High Neg Specific Lyndon NA Low 1.01-1.02 (HCG) 12/06/2010 [facility] Specific 1.030 1.010-1.030 Urine [phone] Lyndon Urine NEGATIVE Negative 37 PT W/Inr 11/30/2010 [facility] Inr 0.94 0.82-1.17 38 [phone] Protime 11.0 SEC 10.2-14.8 39 CBC No Diff 11/30/2010 [facility] White Blood 9.4 CUMM 4.8-10.8 [phone] Count Red Cell Count 4.47 CUMM 4.2-5.4 Hemoglobin 13.8 g/dL 12.0-16.0 Hematocrit 40 % 35-47 Mean Corpuscular Volume 89 um3 79-97 Mean Corpuscular Hemoglob 31 pg 27-31 Mean Corpuscular HGB Cone 35 g/dL 32-36 Redcell Distribution WDTH 13 % 10.5-15 Platelet Count 426 CUMM 150-450 Mean Platelet Volume 6.8 um3 Low 7.4-10.4 Laboratory test 11/30/2010 [facility] Amylase 76 U/L 20-120 40 finding [phone] Lipase 22 U/L 22-51 Troponin-I 0 NG/ML 0-0.06 41 Comp Metabolic Panel 11/30/2010 [facility] Sodium 136 mmol/L 135-145 [phone] Potassium 3.8 mmol/L 3.5-5.0 Chloride 105 mmol/L 101-111 Co2 (Carbon Dioxide) 24.0 mmol/L 22-32 Anion Gap 7.0 mmol/L 2-11 42 Glucose 95 mg/dL 70-100 BUN 10 mg/dL 6-24 Creatinine 0.66 mg/dL 0.50-1.40 One Over Creatinine 1.50 BUN/Creatinine Ratio 15.2 8-20 Calcium 8.6 mg/dL 8.1-9.9 Total Protein 7.5 GM/DL 6.2-8.1 Albumin 3.5 GM/DL Low 3.6-5.4 Globulin 4.0 GM/DL 2-4 Albumin/Globulin Ratio 0.9 Low 1-3 Bilirubin Total 0.6 mg/dL 0.4-1.5 43 Alkaline Phosphatase 107 U/L 30-110 Alt (SGPT) 30 U/L 14-54 Ast (Sgot) 26 U/L 12-42 eGFR Non- 97.3 > 60 eGFR 125.1 > 60 44 Laboratory test 11/30/2010 [facility] PTT (Aptt) 33.9 25.15-38.53 finding [phone] D Dimer Quantitative < 200 NG/ML Less Than 230 45 CBC With Manual 10/31/2009 [facility] White Blood 7.0 CUMM 4.8-10.8 Diff [phone] Count Red Cell Count 4.54 CUMM 4.2-5.4 Hemoglobin 14.1 g/dL 12.0-16.0 Hematocrit 40 % 35-47 Mean Corpuscular Volume 89 um3 79-97 Mean Corpuscular Hemoglob 31 pg 27-31 Mean Corpuscular HGB Cone 35 g/dL 32-36 Redcell Distribution WDTH 13 % 10.5-15 Platelet Count 491 CUMM High 150-450 Mean Platelet Volume 6.8 um3 Low 7.4-10.4 Polysegmented Neutrophil 47 % 38-83 Lymphocyte 45 % 25-47 Monocyte 5 % 0-13 Eosenophil 2 % 0-6 Atypical Lymph 1 % 0-6 Absolute Neutrophil Count 3.2 RBC Morphology NORMAL CMP Stat 10/22/2009 [facility] Sodium 141 mmol/L 135-145 [phone] Potassium 3.5 mmol/L 3.5-5.0 Chloride 104 mmol/L 101-111 Co2 (Carbon Dioxide) 27.0 mmol/L 22-32 Anion Gap 10.0 mmol/L 2-11 46 Glucose 141 mg/dL High 70-100 47 BUN 15 mg/dL 6-24 Creatinine 0.80 mg/dL 0.50-1.40 One Over Creatinine 1.20 BUN/Creatinine Ratio 18.8 8-20 Calcium 9.0 mg/dL 8.1-9.9 48 Total Protein 7.1 GM/DL 6.2-8.1 Albumin 3.5 GM/DL Low 3.6-5.4 Globulin 3.6 GM/DL 2-4 Albumin/Globulin Ratio 1.0 1-3 Bilirubin Total 0.6 mg/dL 0.4-1.5 49 Alkaline Phosphatase 71 U/L 30-110 Alt (SGPT) 15 U/L 14-54 Ast (Sgot) 19 U/L 12-42 eGFR Non- 83.2 > 60 eGFR 100.7 > 60 50 Laboratory test 10/22/2009 [facility] Amylase Stat 82 U/L 30-125 finding [phone] Lipase 27 U/L 22-51 CBC With 10/22/2009 [facility] White Blood 13.6 CUMM High 4.8-10.8 Manual Diff [phone] Count Red Cell Count 4.95 CUMM 4.2-5.4 Hemoglobin 15.2 g/dL 12.0-16.0 Hematocrit 45 % 35-47 Mean Corpuscular Volume 90 um3 79-97 Mean Corpuscular Hemoglob 31 pg 27-31 Mean Corpuscular HGB Cone 34 g/dL 32-36 Redcell Distribution WDTH 13 % 10.5-15 Platelet Count 366 CUMM 150-450 Mean Platelet Volume 6.9 um3 Low 7.4-10.4 Polysegmented Neutrophil 90 % High 38-83 Lymphocyte 7 % Low 25-47 Monocyte 3 % 0-13 Absolute Neutrophil Count 12.2 Anisocytosis SLIGHT Urinalysis 10/22/2009 [facility] Ua Color YELLOW Yellow W/Microscopic [phone] Appearance-Urine CLEAR Clear Specific Lyndon-Ur 1.021 1.010-1.030 Esterase-Urine NEGATIVE Negative Nitrite NEGATIVE Negative Aneslvtjdzrl-Om-FHC NEGATIVE Negative Protein-Urine NEGATIVE Negative PH-Urine 7.0 5-9 Blood-Urine TRACE Abnormal Negative Ketones-Urine NEGATIVE Negative Bilirubin-Ur NEGATIVE Negative Glucose-Urine NEGATIVE Negative WBC-Urine 0-2 0-5 RBC-Urine 0-2 0-2 Mucus Urine SMALL None Epith Cells-Ur FEW None Bacteria-Urine TRACE None Vitamin D.25 09/29/2009 [facility] 25-Hydroxy Vitamin 21 ng/mL () Hydroxy [phone] D2 25-Hydroxy Vitamin D3 15 ng/mL () 25-Hydroxy Vitamin D Total 36 ng/mL () 51 Vitamin D.25 08/10/2009 [facility] 25-Hydroxy Vitamin <4.0 ng/mL () Hydroxy [phone] D2 25-Hydroxy Vitamin D3 24 ng/mL () 25-Hydroxy Vitamin D Total 24 ng/mL Abnormal () 52 Lipid Profile 08/10/2009 [facility] Triglyceride 126 mg/dL 40-200 (Trig/Chol/HDL) [phone] Cholesterol 177 mg/dL Less Than 200 53 High Density Lipoprotein 47 mg/dL 40-60 54 Cholesterol/HDL Ratio 3.77 AVERAGE 1-4.44 Low Density Lipoprotein 105 mg/dL High Less Than 100 55 1 [id number] SEE RESULT BELOW Name: YVONNE OLIVER : [address]: Masood Davis MD Acct: [id number] Unit: [id number] AGE: 53 Location: [facility] Re02/19/19 SEX: F Status: DEP ER SPEC: [id number] DRAGAN: 02/19/[address] [facility] [address]: Masood Davis MD REQ: [id number] RECD: 02/19/19 STATUS: AMAN GUO DR: Edward Villalpando FINISHED YARN EXAMINER _ SOURCE: URINE SPDESC: ORDERED: Urine Culture COMMENTS: [id number] Procedure Result Reported Site Urine Culture Final 02/20/19- 1617 ML No growth of clinically significant organisms * ML - Main Lab . END OF REPORT DEPARTMENT OF PATHOLOGY, [address] [place] [address] Carlos Jennings M.D. Director [facility] # [id number] 3 Physical Therapy Nurse: [id number] Test Disclaimer: Positive bacteria, red blood cells, white blood cells, early , low specific gravity, and other factors may cause false positive or negative results. It is recommended to retest unexpected results within 24 to 72 hours with a serum test when applicable. If is still suspected, please repeat test after 48 to 72 hours. 4 Physical Therapy Nurse: [id number] 5 Physical Therapy Nurse: [id number] 6 SEE RESULT BELOW Name: WESLEYVICYVONNE VERAS : [address]: Lorelei Jasso DO Acct: [id number] Unit: [id number] AGE: 52 Location: ENDO Re12/04/17 SEX: F Status: REG REF SPEC: [id number] DRAGAN: 12/04/17-[address] [facility] [address]: Lorelei Jasso DO REQ: [id number] RECD: 12/04/172284 STATUS: BRENDA GUO DR: Edward Villalpando FINISHED YARN EXAMINER _ ORDERED: LEVEL 4 FINAL DIAGNOSIS Colon, ascending, biopsy: -- Hyperplastic polyp. CLINICAL HISTORY Screening/Surveillance for malignancy in asymptomatic patient. POST-OPERATIVE DIAGNOSIS 6 mm polyp distal ascending colon; rare scattered sigmoid diverticulosis; internal hemorrhoids. Conclusions/Plan: 5 years GROSS DESCRIPTION The specimen is received in formalin labeled, Ascending Colon Polyp, and consists of a 0.5 x 0.3 x 0.2 cm aggregate of massey-white irregular to polypoid soft tissue fragments which is submitted entirely in one cassette. Signed (signature on file) Sarai Amezquita MD 1030 END OF REPORT DEPARTMENT OF PATHOLOGY, [address] [place] [address] Carlos Jennings M.D. Director [facility] # [id number] SEE RESULT BELOW Name: DAVIONFEDEALBERYVONNE : [address]: Edward Villalpando NP Acct: [id number] Unit: [id number] AGE: 52 Location: [facility] Re11/14/17 SEX: F Status: REG REF SPEC: [id number] DRAGAN: 11/14/17-[address]: Edward Villalpando NP REQ: [id number] RECD: 11/14/17 STATUS: SOUT _ ORDERED: TP IMAGE ANAL, HPV/Thin Prep, HPV 16/18 GENE COMMENTS: [id number] Negative for Intraepithelial lesion or Malignancy A. Ectocervical/Endocervical Specimen Adequacy: Satisfactory of evaluation Transformation zone component identified Patient Information: HPV: High risk HPV RNA testing regardless of pap results. HPV 16/18 Genotype Reflex Actual Specimen Date: 11/14/17 LMP If Unknown: unknown Date of Last Specimen: 04/29/14 Date Time Test Result Flag (u) Normal Range 11/14/17 1154 @ HPV RNA RFLX GE Negative Negative @ @ The high-risk HPV types detected by the assay include: 16, @ 18, 31, 33, 35, 39, 45, 51, 52, 56, 58, 59, 66, and 68. Signed (signature on file) [facility](ASCP) 11/17 132 This Pap test was evaluated with the assistance of the HeadCountp Test Imaging System. Due to cytologic findings at the ambulatory nurse microscope, comprehensive manual rescreening by a Orthotic/Prosthetic Practitioner may be required. The Pap Smear is a screening test designed to aid in the detection of premalignant and malignant conditions of the uterine cervix. It is not a diagnostic procedure and should not be used as the sole means of detecting cervical cancer. Both false- positive and false- negative reports do occur. Depending on your risk status, a Pap smear should be obtained and evaluated every 1-3 years. END OF REPORT * ML=Testing performed at Main Lab DEPARTMENT OF PATHOLOGY, [address] [place] [address] Carlos Jennings M.D. Director [facility] # [id number] 9 Platelet count confirmed by smear estimate. 10 Because ethnic data is not always readily available, this report includes an eGFR for both -Americans and non- Americans. The National Kidney Disease Education Program (NKDEP) does not endorse the use of the MDRD equation for patients that are not between the ages of 18 and 70, are , have extremes of body size, muscle mass, or nutritional status, or are non- or non-. According to the National Kidney Foundation, irrespective of diagnosis, the stage of the disease is based on the level of kidney function: Stage Description GFR(mL/min/1.73 m(2)) 1 Kidney damage with normal or decreased GFR 90 2 Kidney damage with mild decrease in GFR 60-89 3 Moderate decrease in GFR 30-59 4 Severe decrease in GFR 15-29 5 Kidney failure <15 (or dialysis) 11 Acute inflammation: >10.00 12 Because ethnic data is not always readily available, this report includes an eGFR for both -Americans and non- Americans. The National Kidney Disease Education Program (NKDEP) does not endorse the use of the MDRD equation for patients that are not between the ages of 18 and 70, are , have extremes of body size, muscle mass, or nutritional status, or are non- or non-. According to the National Kidney Foundation, irrespective of diagnosis, the stage of the disease is based on the level of kidney function: Stage Description GFR(mL/min/1.73 m(2)) 1 Kidney damage with normal or decreased GFR 90 2 Kidney damage with mild decrease in GFR 60-89 3 Moderate decrease in GFR 30-59 4 Severe decrease in GFR 15-29 5 Kidney failure <15 (or dialysis) 13 Desirable <150 Borderline high 150-199 High 200-499 Very High >500 14 Desirable <200 Borderline high 200-239 High >239 15 Low <40 Desirable: 40-60 High: >60 16 Desirable: <100 mg/dL Near Optimal: 100-129 mg/dL Borderline High: 130-159 mg/dL High: 160-189 mg/dL Very High: >189 mg/dL 17 [id number] 18 SEE RESULT BELOW Name: YVONNE OLIVER : [address]: Gabriela Barajas MD Acct: [id number] Unit: [id number] AGE: 49 Location: [facility] Re02/11/15 SEX: F Status: DEP ER SPEC: [id number] DRAGAN: 02/11/15-[address] [facility] [address]: Gabriela Barajas MD REQ: [id number] RECD: 02/12/15-1305 STATUS: AMAN GUO DR: Edward Villalpando FINISHED YARN EXAMINER _ SOURCE: THROAT SPDESC: ORDERED: Throat Beta Str Procedure Result Verified Site Throat Beta Strep Culture Final 02/15/15- 831 ML Organism 1 Negative Group A Strep * ML - MAIN LAB ([facility]) . END OF REPORT * ML=Testing performed at Main Lab DEPARTMENT OF PATHOLOGY, [address] [place] [address] Carlos Jennings M.D. Director [facility] # [id number] 19 RUN DATE: 11/26/14 [facility] LIVE PAGE 1 RUN TIME: [address] [place] [address] Specimen Inquiry Name: YVONNE OLIVER : [address]: Edward Villalpando NP Acct: [id number] Unit: [id number] AGE: 49 Location: [facility] Re11/24/14 SEX: F Status: REG REF SPEC: [id number] DRAGAN: 11/24/14-[address]: Edward Villalpando NP REQ: [id number] RECD: 11/24/14-1245 STATUS: COMP _ SOURCE: URINE SPDESC: ORDERED: Urine Culture QUERIES: Provider Requisition # [id number] Procedure Result Verified Site Urine Culture Final 11/26/14- 1005 L No Growth Day 2 (<1,000 CFU/mL) END OF REPORT * ML=Testing performed at Main Lab DEPARTMENT OF PATHOLOGY, [address] [place], [place] [address] Carlos Jennings M.D. Director [facility] # [id number] 20 RESULT: Ectocervical/Endocervical 21 The following Other High Risk HPV types were not detected: 31, 33, 35, 39, 45, 51, 52, 56, 58, 59, 66, and 68 Test Performed by: [place] [id number] [employer] Analyst: Julio Azevedo III, M.D. 22 Because ethnic data is not always readily available, this report includes an eGFR for both -Americans and non- Americans. The National Kidney Disease Education Program (NKDEP) does not endorse the use of the MDRD equation for patients that are not between the ages of 18 and 70, are , have extremes of body size, muscle mass, or nutritional status, or are non- or non-. According to the National Kidney Foundation, irrespective of diagnosis, the stage of the disease is based on the level of kidney function: Stage Description GFR(mL/min/1.73 m(2)) 1 Kidney damage with normal or decreased GFR 90 2 Kidney damage with mild decrease in GFR 60-89 3 Moderate decrease in GFR 30-59 4 Severe decrease in GFR 15-29 5 Kidney failure <15 (or dialysis) 23 Desirable <150 Borderline high 150-199 High 200-499 Very High >500 24 Desirable <200 Borderline high 200-239 High >239 25 Low <40 Desirable: 40-60 High: >60 26 Desirable <100 Near Optimal 100-129 Borderline high 130-159 High 160-189 Very High >189 27 RUN DATE: 05/02/14 [facility] LIVE PAGE 1 RUN TIME: [address] [place], [place] [address] Specimen Inquiry Name: YVONNE OLIVER : [address]: Edward Villalpando NP Acct: [id number] Unit: [id number] AGE: 48 Location: [facility] Re04/29/14 SEX: F Status: REG REF SPEC: [id number] DRAGAN: 04/29/14-[address] [facility] [address]: Edward Villalpando NP REQ: [id number] RECD: 04/29/14-2 STATUS: SOUT _ ORDERED: IMAGE ANALYSIS, HPV/Thin Prep FINAL DIAGNOSIS Negative for Intraepithelial lesion or Malignancy COMMENTS: Specimen sent to [facility] in [place], [place] on 05/02/14 by ASHLEY at 1037. Results will be reported separately. A. Ectocervical/Endocervical Specimen Adequacy: Satisfactory of evaluation Transformation zone component identified Patient Information: HPV: High risk HPV DNA testing regardless of pap results. Actual Specimen Date: 05/01/14 Last Menstrual Date: 04/04/14 ?: N Signed (signature on file) MC Cordero (ASCP) 05/02 7167 This Pap test was evaluated with the assistance of the ThinPrep Test Imaging System. Due to cytologic findings at the ambulatory nurse microscope, comprehensive manual rescreening by a Orthotic/Prosthetic Practitioner may be required. The Pap Smear is a screening test designed to aid in the detection of premalignant and malignant conditions of the uterine cervix. It is not a diagnostic procedure and should not be used as the sole means of detecting cervical cancer. Both false- positive and false- negative reports do occur. Depending on your risk status, a Pap smear shoudl be obtained and evaluated every 1-3 years. END OF REPORT * ML=Testing performed at Main Lab DEPARTMENT OF PATHOLOGY, [address] [place] [address] Carlos Jennings M.D. Director [facility] # [id number] 28 HDL Interpretation: Undesirable: High Risk: Less than 40 MG/DL Desirable: Low Risk: Greater than 60 MG/DL 29 LDL Interpretation: Low Risk Optimal Level: LDL Less than 100 MG/DL Near or Above Optimal: LDL 100-129 MG/DL Borderline High Risk: LDL 130-159 MG/DL High Risk: LDL 160-189 MG/DL Very High Risk: LDL Greater than 189 MG/DL 30 Because ethnic data is not always readily available, this report includes an eGFR for both -Americans and non- Americans. The National Kidney Disease Education Program (NKDEP) does not endorse the use of the MDRD equation for patients that are not between the ages of 18 and 70, are , have extremes of body size, muscle mass, or nutritional status, or are non- or non-. According to the National Kidney Foundation, irrespective of diagnosis, the stage of the disease is based on the level of kidney function: Stage Description GFR(mL/min/1.73 m(2)) 1 Kidney damage with normal or decreased GFR 90 2 Kidney damage with mild decrease in GFR 60-89 3 Moderate decrease in GFR 30-59 4 Severe decrease in GFR 15-29 5 Kidney failure <15 (or dialysis) 31 No bands detected 32 Specific serologic response to B. burgdorferi infection is not detected, but cannot rule out early infection during which low or undetectable antibody levels to B. burgdorferi may be present. If clinically indicated, a new serum specimen should be submitted in 7-14 days. CDC criteria require >=5 bands for IgG or >=2 bands for IgM for the Western blot to be considered positive. Bands (e.g.,p41) may be detected in patients without Lyme disease, and patterns not meeting the CDC criteria should be interpreted with caution. Western blot should be ordered only on specimens that are positive or equivocal by a FDA-licensed Lyme disease antibody screening test (e.g., EIA). Test performed by Immunoblot. Test Performed by: [address] [id number] [employer] Analyst: Julio Azevedo III, M.D. 33 NORMAL THROAT ANUSHKA 34 Specimen Description: VAGINAL 35 ---- RUN DATE: 03/08/11 [facility] NMI LIVE PAGE 1 RUN TIME: 1456 Specimen Inquiry RUN USER: INTERFACE -- Name: YVONNE OLIVER Status: REG REF Re03/07/11 Age/Sex: 45/F Unit#: [id number] Location: [facility] : 66 -- Specimen: [id number] BRENDA Spec Date: 03/07/[address]: Edward levy NP Spec Type: CYTOLOGY Received: 03/08/11 Copies to: SOURCE ECTOCERVICAL/ENDOCERVICAL Thin Prep with Reflex HPV Test PATIENT INFORMATION ACTUAL COLLECTION DATE: 03/07/11 LAST MENSTRUAL PERIOD: 02/17/11 ADEQUACY OF SPECIMEN Satisfactory for evaluation * Transformation zone component identified * DIAGNOSIS NEGATIVE FOR INTRAEPITHELIAL LESION OR MALIGNANCY * This Pap test was evaluated with the assistance of the ZongPrep Pap Test Imaging System. However, due to technical or cytologic issues, the imaging could not be completed. Comprehensive manual rescreening by a Orthotic/Prosthetic Practitioner was performed. The Pap Smear is a screening test designed to aid in the detection of premalign ant and malignant conditions of the uterine cervix. It is not a diagnostic procedure a nd should not be used as the sole means of detecting cervical cancer. Both false- positiv e and false-negative reports do occur. Depending on your risk status, a Pap smear jason uld be obtained and evaluated every one to three years. Initial evaluation performed by Abdoul CROWELL(ASCP) 03/08/11 Final Interpretation electronically signed by: Abdoul CROWELL(ASCP) 03/08/11 1454 -- -- DEPARTMENT OF PATHOLOGY, [address] [place] [address] [facility] Permit #[id number] Carlos Jennings M.D. Director Pretty Hogan M.D. Scrap Baller Dir mushtaq -- 36 NORMAL GENITAL ANUSHKA 37 If is still suspected, please repeat test after 48 to 72 hours. . 38 Recommended INR for Patients on Oral Anticoagulants Prophylaxis 2.0 - 3.0 Treatment of thrombosis 2.0 - 3.0 Prevention of embolism 2.0 - 3.0 Prevention of embolism from prosthetic heart valves 2.5 - 3.5 39 DIAGNOSIS,TREATMENT,AND THERAPY MUST BE BASED ON THE INR VALUE ALONE. 40 PLEASE NOTE NEW REFERENCE RANGE. 41 New Reference Range and Interpretation effective 06/25/2002 TnI (ng/ml) INTERPRETATION Less Than 0.06 ng/mL NOT SUPPORTIVE OF DIAGNOSIS OF DE 0.06 - 0.50 ng/ml INDETERMINATE: SUGGEST SERIAL STUDIES IF CLINICALLY INDICATED. Greater than 0.5 ng/mL CONSISTENT WITH DIAGNOSIS OF DE . 42 Anion gap measurement may be of limited value in the presence of any alkalosis, especially in a combined acid base disorder. . 43 A metabolite of Naproxen, O-desmethylnaproxen, has been shown to interfere with the Jendrkathyik-Tiara method for measuring total bilirubin. Samples from patients who have taken Naproxen have shown spurious elevation in total bilirubin levels. 44 Because ethnic data is not always readily available, this report includes an eGFR for both -Americans and non- Americans. The National Kidney Disease Education Program (NKDEP) does not endorse the use of the MDRD equation for patients that are not between the ages of 18 and 70, are , have extremes of body size, muscle mass, or nutritional status, or are non- or non-. According to the National Kidney Foundation, irrespective of diagnosis, the stage of the disease is based on the level of kidney function: Stage Description GFR(mL/min/1.73 m(2)) 1 Kidney damage with normal or decreased GFR 90 2 Kidney damage with mild decrease in GFR 60-89 3 Moderate decrease in GFR 30-59 4 Severe decrease in GFR 15-29 5 Kidney failure <15 (or dialysis) 45 Please note: The following may produce a false positive D Dimer test: - Rheumatoid factor greater than 60 IU/ml - Plasma hemoglobin greater than 0.05 gm/dl - Bilirubin greater than 50 mg/dl - Lipids greater than 1000 mg/dl - FDP greater than 20 ug/ml . 46 Anion gap measurement may be of limited value in the presence of any alkalosis, especially in a combined acid base disorder. . 47 Note change in reference range as of 05/12/08. The change was based on recommendations from the [place] [employer]. 48 Please note change in reference range effective 08 . 49 A metabolite of Naproxen, O-desmethylnaproxen, has been shown to interfere with the Jendrassik-Tiara method for measuring total bilirubin. Samples from patients who have taken Naproxen have shown spurious elevation in total bilirubin levels. 50 Because ethnic data is not always readily available, this report includes an eGFR for both -Americans and non- Americans. The National Kidney Disease Education Program (NKDEP) does not endorse the use of the MDRD equation for patients that are not between the ages of 18 and 70, are , have extremes of body size, muscle mass, or nutritional status, or are non- or non-. According to the National Kidney Foundation, irrespective of diagnosis, the stage of the disease is based on the level of kidney function: Stage Description GFR(mL/min/1.73 m(2)) 1 Kidney damage with normal or decreased GFR 90 2 Kidney damage with mild decrease in GFR 60-89 3 Moderate decrease in GFR 30-59 4 Severe decrease in GFR 15-29 5 Kidney failure <15 (or dialysis) 51 -- REFERENCE VALUE -- 25-HYDROXY D TOTAL (D2+D3) Optimum levels in the normal population are 25-80 Test Performed by: [facility] Dpt of Lab Med and Pathology [address] [place], [place] [address] [employer] Analyst: Julio Azevedo III, M.D. 52 Interpretation: 10-24 (mild to moderate deficiency) -- REFERENCE VALUE -- 25-HYDROXY D TOTAL (D2+D3) Optimum levels in the normal population are 25-80 Test Performed by: [facility] Dpt of Lab Med and Pathology [address] [place], [place] [address] [employer] Analyst: Julio Azevedo III, M.D. 53 CHOLESTEROL INTERPRETATION: Desirable: Less than 200 MG/DL Borderline-High Risk: 200-239 MG/DL High-Risk: 240 MG/DL and over 54 HDL INTERPRETATION: Undesirable: High Risk: Less than 40 MG/DL Desirable: Low Risk: Greater than 60 MG/DL 55 LDL INTERPRETATION: Low Risk Optimal Level: LDL Less than 100 MG/DL Near or Above Optimal: LDL 100-129 MG/DL Borderline High Risk: LDL 130-159 MG/DL High Risk: LDL 160-189 MG/DL Very High Risk: LDL Greater than 189 MG/DL Procedures Date Code Description Status 12/04/2017 [id number] Colonoscopy Completed 11/14/2017 28276 EKG, at Least 12 Leads w/Interpretation and Report Completed 07/18/2011 22116 EKG, at Least 12 Leads w/Interpretation and Report Completed 08/06/2010 39935 Nebulizer Treatment Completed Encounters Type Date Location Provider Dx Diagnosis Office Visit 11/30/2018 Main Office Cael Guerrero J01.90 Acute sinusitis, 4:30p unspecified Office Visit 11/23/2018 Main Office Cale Guerrero J01.Ninoska Acute sinusitis, 8:45a unspecified Office Visit 04/27/2018 Main Office Edward Villalpando, F32.89 Other specified 4:30p ADDING MACHINE MECHANIC-C depressive episodes J45.909 Unspecified asthma, uncomplicated Office Visit 11/14/2017 9:30a Main Office Edward Villalpando, Z00.00 Encntr for general ADDING MACHINE MECHANIC-C adult medical exam w/o abnormal findings Z12.31 Encntr screen mammogram for malignant neoplasm of breast Office Visit 10/09/2017 8:45a Main Office Cale Guerrero J06.9 Acute upper MD respiratory infection, unspecified Office Visit 08/25/2017 2:00p Main Office Cale Guerrero J18.9 Pneumonia, MD unspecified organism Office Visit 08/15/2017 12:15p Main Office Karolyn Olivas J18.9 PneumoniaNevin M.D. unspecified organism Office Visit 08/07/2017 9:30a Main Office Edward Villalpando, J20.9 Acute bronchitis, ADDING MACHINE MECHANIC-C unspecified Office Visit 03/31/2017 3:45p Main Office Edward Villalpando, J02.0 Streptococcal ADDING MACHINE MECHANIC-C pharyngitis Office Visit 01/08/2017 10:45a Main Office Ching Xie J02.0 Streptococcal ADDING MACHINE MECHANIC-C pharyngitis Office Visit 12/24/2016 9:00a Main Office Ching Xie, J02.0 Streptococcal ADDING MACHINE MECHANIC-C pharyngitis Office Visit 06/20/2016 1:45p Main Office Edward Villalpando, J18.9 Pneumonia, ADDING MACHINE MECHANIC-C unspecified organism Office Visit 05/30/2016 4:30p Main Office Edward Villalpando, J30.9 Allergic rhinitis, ADDING MACHINE MECHANIC-C unspecified Office Visit 04/26/2016 8:45a Main Office Edward Villalpando, Z00.00 Encntr for general ADDING MACHINE MECHANIC-C adult medical exam w/o abnormal findings N64.59 Other signs and symptoms in breast G47.00 Insomnia, unspecified E66.9 Obesity, unspecified J06.9 Acute upper respiratory infection, unspecified Office Visit 01/09/2016 10:45a Main Office Namwntmara Cruz F32.8 Other depressive Storm, ADDING MACHINE MECHANIC-C episodes Office Visit 10/16/2015 9:30a Main Office Namwntmara R. N64.59 Other signs and Storm, ADDING MACHINE MECHANIC-C symptoms in breast Z12.31 Encntr screen mammogram for malignant neoplasm of breast Office Visit 02/16/2015 11:15a Main Office Edward Cruz 465.9 URI Upper Storm, ADDING MACHINE MECHANIC-C Respiratory Infections Acute Unspec Sites 372.03 Conjunctivitis Mucopurulent Other Office Visit 01/24/2015 10:00a Main Office Namwelizabethi Nancy Villalpando, 477.9 Rhinitis Allergic ADDING MACHINE MECHANIC-C Cause Unspec Office Visit 11/24/2014 9:15a Main Office Namwntmara Villalpando, 599.0 UTI Urinary Tract ADDING MACHINE MECHANIC-C Infection Site Not Spec 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 486 Pneumonia Organism Storm, ADDING MACHINE MECHANIC-C Unspec Office Visit 08/04/2014 9:30a Main Office Shawnti R. 461.8 Sinusitis Acute Storm, ADDING MACHINE MECHANIC-C Other Office Visit 04/29/2014 8:45a Main Office Namwnti R. V70.0 Examination General Storm, ADDING MACHINE MECHANIC-C Medical Routine AT Health Care Facility V72.62 Laboratory Exam Ordered as Part Of Routine General Med Exam Office Visit 04/16/2014 9:45a Main Office Namwntmara R. 616.10 Vaginitis & Storm, ADDING MACHINE MECHANIC-C Vulvovaginitis Unspec Office Visit 10/05/2012 9:00a Main Office Shawnti R. V70.0 Examination General Storm, ADDING MACHINE MECHANIC-C Medical Routine AT Health Care Facility V72.62 Laboratory Exam Ordered as Part Of Routine General Med Exam 308.9 Stress Reaction Unspec Acute Office Visit 07/27/2012 11:45a Main Office Edward Villalpando, 724.5 Backache Unspec ADDING MACHINE MECHANIC-C Office Visit 06/16/2012 2:15p Main Office Namwnti RTanisha Villalpando, 308.9 Stress Reaction ADDING MACHINE MECHANIC-C Unspec Acute 723.1 Cervicalgia 278.00 Obesity Unspec Office Visit 05/21/2012 3:00p Main Office Shawnti R. 723.1 Cervicalgia Storm, ADDING MACHINE MECHANIC-C Office Visit 05/04/2012 11:00a Main Office Namwnti R. 308.9 Stress Reaction Storm, ADDING MACHINE MECHANIC-C Unspec Acute Office Visit 04/20/2012 11:30a Main Office Namwntmara R. 308.9 Stress Reaction Storm, ADDING MACHINE MECHANIC-C Unspec Acute 782.1 Rash & Other Nonspec Skin Eruption Office Visit 03/05/2012 11:15a Main Office Shawnti R. 465.9 URI Upper Storm, ADDING MACHINE MECHANIC-C Respiratory Infections Acute Unspec Sites Office Visit 12/13/2011 11:15a Main Office Shawnti R. 112.89 Candidiasis Other Storm, ADDING MACHINE MECHANIC-C 308.9 Stress Reaction Unspec Acute Office Visit 10/28/2011 10:30a Main Office Shawnti R. 386.10 Vertigo Peripheral Storm, ADDING MACHINE MECHANIC-C Unspec 784.0 Headache 308.9 Stress Reaction Unspec Acute 373.11 Hordeolum Externum Office Visit 10/15/2011 11:15a Main Office Shawnti R. 386.10 Vertigo Peripheral Storm, ADDING MACHINE MECHANIC-C Unspec 308.9 Stress Reaction Unspec Acute 373.11 Hordeolum Externum Office Visit 10/01/2011 11:15a Main Office Shawnti R. 386.10 Vertigo Peripheral Storm, ADDING MACHINE MECHANIC-C Unspec 308.9 Stress Reaction Unspec Acute Office Visit 09/30/2011 10:45a Main Office Shawnti R. 311 Depressive Disorder Storm, ADDING MACHINE MECHANIC-C Not Elsewhere Spec Office Visit 09/09/2011 9:45a Main Office Shawnti R. 789.00 Pain Abdominal Storm, ADDING MACHINE MECHANIC-C Unspec Site 311 Depressive Disorder Not Elsewhere Spec Office Visit 08/08/2011 10:00a Main Office Shawnti R. Storm, 789.00 Pain Abdominal ADDING MACHINE MECHANIC-C Unspec Site 311 Depressive Disorder Not Elsewhere Spec Office Visit 07/18/2011 11:00a Main Office Shawnti R. Storm, 724.5 Backache Unspec ADDING MACHINE MECHANIC-C 789.00 Pain Abdominal Unspec Site 786.51 Pain Precordial V04.81 Need For Prophylactic Vaccination & Inoculation/Influenza Office Visit 03/26/2011 10:00a Main Office Shawnti R. Storm, ADDING MACHINE MECHANIC-C 784.1 Throat Pain 883.0 Open Wound Finger(S) W/O Complication 300.00 Anxiety State Unspec 462 Pharyngitis Acute Office Visit 03/07/2011 2:15p Main Office Shawnti R. 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 Storm, 466.0 Bronchitis Acute ADDING MACHINE MECHANIC-C 309.0 Adjustment Disorder With Depression Office Visit 12/28/2010 11:45a Main Office Namwnti R. Kwasi, 466.0 Bronchitis Acute ADDING MACHINE MECHANIC-C Office Visit 08/27/2010 2:30p Main Office Namwntmara RTanisha Villalpando, 311 Depressive Disorder ADDING MACHINE MECHANIC-C Not Elsewhere Spec Office Visit 08/10/2010 3:30p Main Office Namwnti R. Storm, 466.0 Bronchitis Acute ADDING MACHINE MECHANIC-C 311 Depressive Disorder Not Elsewhere Spec Office Visit 08/06/2010 11:00a Main Office Namwnti R. Storm, 466.0 Bronchitis Acute ADDING MACHINE MECHANIC-C Office Visit 07/24/2010 10:30a Main Office Namwnti R. Kwasi, 921.2 Contusion Orbital ADDING MACHINE MECHANIC-C Tissues V04.81 Need For Prophylactic Vaccination & Inoculation/Influenza Office Visit 06/11/2010 11:15a Main Office Shawnti R. 466.0 Bronchitis Acute Storm, ADDING MACHINE MECHANIC-C Office Visit 11/24/2009 3:30p Main Office Namwnti R. 465.9 URI Upper Storm, ADDING MACHINE MECHANIC-C Respiratory Infections Acute Unspec Sites Office Visit 10/12/2009 12:00p Main Office Shawnti R. 782.1 Rash & Other Nonspec Storm, ADDING MACHINE MECHANIC-C Skin Eruption 466.0 Bronchitis Acute Office Visit 10/09/2009 12:00p Main Office Shawnti R. 466.0 Bronchitis Acute Storm, ADDING MACHINE MECHANIC-C Office Visit 08/10/2009 8:00a Main Office Shawnti R. 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 plan to return to work Friday assuming sx have improved, will take out of work longer if aqsudvY76.998 Other asthmaComments:will refer for allergy testing and possible desensitizationFollow up:refer to Terry NmvpuzfY82.90 Acute sinusitis, unspecifiedComments:treat with Augmentin twice daily for 10 days, continue Neti pot ... encourage fluids
--- OUTSIDE RECORDS SUMMARY | 2019-03-29 12:26 | XMS REPORT | Continuity of Care Document ---
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 150mg may repeat in 1 Storm, [facility] Tablets week if sx still present Nystatin apply small amount 30gm B37.3 Shawnti R. 03/16/2019 to vulva three Storm, [facility] [id number]/GM Cream times daily until resolved Prednisone one pill by mouth 5tabs J20.9 [facility] 03/16/2019 50mg daily for 5 days Storm, [facility] Tablets for breathing Albuterol Sulfate use one vial in 90ml J20.9 [facility] R. 03/16/2019 nebulizer every 4 Storm, [facility] (2.5mg/3ML) 0.083% hours if needed Nebulizer for breathing Nebulizer use to deliver 2units J20.9 [facility] 03/16/2019 Kit/Tubing/Mouthpie albuterol via Storm, [facility] ce nebulizer four Kit times a day Doxycycline Hyclate 1 take by mouth 20caps J01.90 [facility] 11/30/2018 capsule 2 times MD Yolanda 100mg Capsules per day for 10 days for infection Fluoxetine HCL 1 by mouth every 90caps [facility] R. 04/27/2018 (PMDD) morning [facility], [facility] 10mg Capsules Flovent Diskus inhale one puff by 60units J18.9 [facility] 08/15/2017 mouth twice daily Storm, [facility] 100mcg/Blist as directed - Aerosol rinse mouth after use Spacer use as directed 1units J18.9 Karolyn PTanisha 08/15/2017 for albuterol Camelia Rooney inhaler Benzonatate 1 by mouth three 45caps J20.9 [facility] 08/07/2017 200mg times a day for Storm, [facility] Capsules cough Ventolin HFA inhale two puffs 8.5units J20.9 Namwnti R. 08/07/2017 by mouth every 4 Storm, [facility] [employer] 108(90Base) mcg/Act hours as needed Aerosol for wheeze Zantac 1 by mouth bid for Shawnti R. 04/29/2014 150mg heart burn Storm, [employer] Tablets Advil PM prn Kennethnti R. 04/29/2014 200-25mg Storm, [facility] Capsules Zinc Unknown 30mg Capsules Vitamin D3 1 by mouth every Unknown 1000Unit day for vit d Tablets deficiency History Medications Prednisone 1 tab by mouth 4tabs J01.90 Cale 11/30/2018 - 50mg Tablets daily for 4 days MD Yolanda 03/16/2019 Augmentin 1 take by mouth 20tabs J01.90 Clae 11/23/2018 - 875-125mg tablet every 12 MD Yolanda 11/30/2018 Tablets hours for 10 days for infection Nystatin 5 milliliters 200ml Karolyn Olivas 08/16/2017 - [id number]/ML swish and swallow Camelia Rooney 04/27/2018 Suspension four times a day x 7-10 days for thrush- please fill now Levofloxacin 1 tab by everyday 8tabs J18.9 Karolyn Olivas 08/15/2017 - 500mg for 8 days for Camelia Rooney 11/14/2017 Tablets pneumonia Doxycycline Hyclate 1 by mouth twice 20caps J20.9 Edward RTanisha 08/07/2017 - a day for 10 days Storm, [facility] 08/15/2017 100mg Capsules Penicillin V 1 tab by mouth 30tabs J02.0 Edward RTanisha 03/31/2017 - Potassium three times a day Storm, [facility] 04/10/2017 500mg Tablets x 10 days Penicillin V 1 tab by mouth 30tabs J02.0 Ching Xie, 01/08/2017 - Potassium three times a day [facility] 03/31/2017 500mg Tablets x 10 days Amoxicillin 1 tablet twice a 20tabs J02.0 Ching Xie, 12/24/2016 - 875mg day x 10 days [facility] 01/08/2017 Tablets Augmentin 1 by mouth twice 20tabs J18.9 Edward R. 06/20/2016 - 875-125mg a day for Storm, [facility] 06/30/2016 Tablets infection Benzonatate 1 by mouth three 30caps J18.9 Edward R. 06/20/2016 - 200mg times a day for Storm, [facility] 03/31/2017 Capsules cough Xyzal 1by mouth every 90tabs J30.9 [facility] 05/30/2016 - 5mg Tablets day Storm, [facility] 11/14/2017 Sonata 1 po QHS if 30caps G47.00 [facility] 04/26/2016 - 5mg Capsules needed for sleep Storm, [facility] 12/24/2016 Benzonatate 1 by mouth three 30caps J06.9 [facility]ti R. 04/26/2016 - 200[facility] 05/06/2016 Capsules cough Sulfacetamide Sodium 2 drops both eyes 1bottle 372.03 [facility] R. 2014 - 4 times daily for Storm, [facility] 04/26/2016 10% Solution 5 days Nasonex 2 sprays each 17gm J30.9 Ching Xie, 01/24/2015 - 50mcg/Act nostril daily for [facility] 11/14/2017 Suspension rhinitis Sulfamethoxazole/Trim 1 by mouth twice 10tabs 599.0 [facility] R. 11/24/2014 - ethoprim DS a day for Storm, [facility] 12/04/2014 800-160mg infection, take Tablets for 5 days Pyridium 1 by mouth three 30tabs 599.0 [facility] 11/24/2014 - 100mg Tablets times a day as Storm, [facility] 01/24/2015 needed bladder and kidney pain Fluoxetine HCL 1 by mouth every 90caps F33.0 [facility] 11/24/2014 - 20mg day [facility] 12/24/2016 Capsules Augmentin 1 by mouth twice 20tabs 486 [facility]. 10/31/2014 - 875-125mg a day for Storm, [facility] 11/10/2014 Tablets infection Benzonatate 1 by mouth three 30caps 486 Shawnti R. 10/31/2014 - 200mg times a day for [facility] 11/10/2014 Capsules cough Amoxicillin 1 by mouth three 30tabs 461.8 Shawnti R. 08/04/2014 - 500mg times a day for Storm, [facility] 08/14/2014 Tablets 10 days for infection Claritin 1 by mouth daily J30.9 [facility] R. 04/29/2014 - 10mg Capsules for allergies prn [facility], [facility] 05/30/2016 Finacea apply to face [facility] R. 04/29/2014 - 15% Gel daily for rosacea [facility], [facility] 01/24/2015 Lutein 20 2 daily [facility] R. 04/29/2014 - Capsules [facility], [facility] 04/26/2016 Ammonium Lactate apply to feet [facility] R 04/29/2014 - 12% every night at [facility], [facility] 12/24/2016 Cream bedtime if needed Nystatin-Triamcinolon apply small 30gm 616.10 [facility] R. 04/16/2014 - e amount to [facility], [facility] 04/26/2016 708414-5.1Unit/GM-% affected are Ointment three times daily until resolved Lanicaine [facility] to affected [facility] 10/05/2012 - area as needed [facility], [facility] 04/29/2014 Nabumetone take one pill 30tabs 723.1 [facility] R. 06/16/2012 - 750mg daily with food [facility], [facility] 04/29/2014 Tablets for neck pain Cyclobenzaprine HCL 1/2 or 1 po QHS 15tabs 723.1 [facility] R. 05/21/2012 - prn muscle spasm [facility], [facility] 06/16/2012 10mg Tablets Prozac take one capsule 90caps 311 [facility] 04/20/2012 - 10mg Capsules by mouth every [facility], [facility] 04/29/2014 morning for anxiety and stress Amoxicillin 1 po tid for 30caps [facility] R. 03/10/2012 - 500mg infection [facility], [facility] 04/20/2012 Capsules Guaifenesin/Codeine 1-2 tsp po q6hrs 150ml [facility] R. 03/05/2012 - prn cough [facility], [facility] 04/20/2012 100-10mg/5ML Syrup Alprazolam 1/2 or 1 po tid 30thirty 300.00 Namwnti R. 12/20/2011 - 0.25mg prn anxiety [facility] 10/05/2012 Tablets Gentamicin Sulfate 1 cm ribbon qid 1tube 373.11 Shawnti R. 10/28/2011 - 0.1% left eye for 5 Storm, [facility] 04/20/2012 Ointment days or until resolved Meclizine HCL 1 po q6hr prn 30tabs 386.10 Namwnti R. 10/01/2011 - 25mg dizziness [facility] 10/05/2012 Tablets Melatonin CR qhs [facility] 09/30/2011 - 3mg Storm, [facility] 10/05/2012 Tablets ER Omeprazole 1 po qd-ac for 30caps 786.51 Namwnti R. 07/18/2011 - 20mg stomach acid [facility] 04/29/[address] Alprazolam 1/2 or 1 po bid 20twenty 300.00 Namwnti R. 03/26/2011 - 0.25mg prn anxiety [facility] 12/20/2011 Tablets Nystatin/Triamcinolon apply pea sized 1tube 625.70 Namnti R. 03/07/2011 - e amount to Storm, [facility] 10/05/2012 762943-3.1Unit/GM-% affected area bid Cream prn itching Nystatin apply to affected 1bottle 112.89 Namnti R. 03/07/2011 - 750451Glzo/GM area tid until Storm, [facility] 10/05/2012 Powder resolved Robitussin ac 1-2 tsp po q4-6hr 150ml 466.0 Namwnti R. 02/08/2011 - prn cough/pain [facility] 04/20/2012 Tessalon Perles 1 po tid prn 30caps 466.0 Namwnti R. 02/08/2011 - 100mg cough [facility] 04/20/2012 Capsules Amoxicillin/Potassium 1 po bid for 20tabs 466.0 Namwnti R. 02/04/2011 - Clavulanate infection [facility], [facility] 02/14/2011 875-125mg Tablets Tessalon Perles 1 po tid prn 30caps 466.0 Shawnti R. 08/10/2010 - 100mg cough [facility], [facility] 10/15/2010 Capsules Prozac 1 po qd 90caps 311 Shawnti R. 08/10/2010 - 20mg Capsules Storm, [facility] 04/20/2012 Amoxicillin/Potassium 1 po bid for 20tabs 466.0 [facility] 08/06/2010 - Clavulanate infection [facility], [facility] 08/16/2010 875-125mg Tablets Amoxicillin/Potassium 1 po bid for 20tabs 466.0 [facility] 06/11/2010 - Clavulanate bronchitis [facility], [facility] 06/21/2010 875-125mg Tablets Robitussin ac 1-2 tsp po q4-6hr 150ml 466.0 [facility] R. 06/11/2010 - prn cough/pain [facility], [facility] 08/16/2010 Benzonatate 1 po tid prn 30caps 465.9 Shawnti R. 11/24/2009 - 100mg cough [facility], [facility] 12/04/2009 Capsules Ofloxacin 1 po bid for 20tabs 466.0 [facility] 10/12/2009 - 400mg Tablets bronchial [facility], [facility] 10/22/2009 pneumomonia, replaces doxycycline, take for 10 days Nystatin apply to affected 2Bottles 782.1 Shawnti R. 10/12/2009 - 740805Tqwg/GM area tid until [facility], [facility] 10/05/2012 Powder resolved Robitussin ac 1-2 tsp po q4-6hr 150ml 466.0 [facility] 10/12/2009 - prn cough/pain [facility], [facility] 10/22/2009 Apri 1 po daily Shawnti R. 10/09/2009 - 0.15-30mg-mcg [facility], [facility] 10/05/2012 Tablets Doxycycline Hyclate 1 po bid for 20caps 466.0 Shawnti R. 10/09/2009 - infection [facility], [facility] 10/12/2009 100mg Capsules Ventolin HFA 1 puff q4hr prn 1units 466.0 [facility] R. 10/09/2009 - cough, wheeze, Kwasi [facility] 08/07/2017 108(90Base) mcg/ac shortness of Aerosol breath No Work no work until 466.0 [facility] R. 10/09/2009 - feeling better Kwasi [facility] 10/19/2009 and fever free for at least 24 hours, will likely miss several days Ergocalciferol 1 po twice weekly 8tabs [facility] R. 08/15/2009 - Tablets for vitamin d Kwasi [facility] 10/09/2009 50,000Units deficiency, Tablets repeat level in 4 weeks Valtrex 1 by mouth twice 14tabs B00.9 [facility] R. 08/10/2009 - 1gm Tablets a day for 7 days Kwasi [facility] 04/27/2018 if needed for cold sores Fluoxetine HCL (PMDD) 1 by mouth daily 90caps [facility] R. - for anxiety and [facility] 04/27/2018 20mg Capsules depression Immunizations CPT Code Status Date Vaccine Lot # [id number] Given 10/09/2017 Influenza Virus Vaccine, Quadrivalent, 3 Yr > Quad, Preserv Free 85140 Given 07/01/2014 Influenza Virus Vaccine, Quadrivalent, 3 Yr > [id number] Quad, Preserv Free 35392 Given 07/18/2011 Influenza Vaccine-Preservative Free 3 Yrs And [id number] Above 14692 Given 07/24/2010 Influenza Vaccine-Preservative Free 3 Yrs And [id number] Above 31869 Given 09/25/2009 Tdap (Adacel) 69600 Refused 01/09/2016 Influenza Virus Vaccine, Quadrivalent, 3 Yr > Quad , Preserv Free Vital Signs Date Vital Result Comment 03/16/2019 4:45pm Weight 233.00 lb Weight 105.689 [...] Mass Index) 43.0 kg/m2 Last Menstrual Period [id number] O2 % BldC Oximetry 98 % 01/09/2016 [...] Body Temperature 97.7 F Last Menstrual Period [id number] 10/31/2014 10:56am Weight 231.00 lb Weight 104.782 [...] Mass Index) 39.7 kg/m2 Last Menstrual Period [id number] 04/16/2014 9:48am Weight 222.00 lb Weight 100.699 kg BP Systolic 124 mmHg BP Diastolic 76 mmHg Heart Rate 80 /min Body Temperature 97.6 F 10/05/2012 9:03am Weight 238.00 lb Weight 107.957 kg BP Systolic 106 mmHg BP Diastolic 74 mmHg Heart Rate 104 /min Height 63.5 inches 5'3.50" BMI (Body Mass Index) 41.5 kg/m2 Last Menstrual Period [id number] 07/27/2012 11:53am Weight 234.00 lb W/Boots Weight [...] High 5-6 Urine Blood trace Neg Specific [place] 1.005 Low 1.01-1.02 Urine Ketones neg Neg Urine Bilirubin neg Neg Urine Glucose norm Norm Urine Culture And 02/19/2019 [facility] Urine SEE RESULT 1, 2 Sensitivities [phone] Culture BELOW Laboratory test 02/19/2019 [facility] Poc Negative Negative 3 finding [phone] , Urine Poc Urinalysis 02/19/2019 [facility] Poc Negative Negative [phone] Glucose, Urine Poc Bilirubin, Urine Negative Negative Poc Ketone, Urine Negative Negative Poc Specific [place], Urine 1.015 N 1.010-1.030 Poc Blood, Urine Trace-intact Abnormal Negative Poc pH, Urine 7.5 N 5-9 Poc Protein, Urine Negative Negative Poc Urobilinogen, Urine 0.2 Negative Poc Nitrite, Urine Negative Negative Poc Leukocytes, Urine 3+ Abnormal Negative Poc Color, Urine Light yellow Poc Clarity, Urine Clear 4 Laboratory test 02/19/2019 [facility] Rapid Strep Negative Negative 5 finding [phone] Molecular Laboratory test 12/04/2017 [facility] Surgical SEE RESULT 6 finding [phone] Pathology BELOW Laboratory test 11/14/2017 [facility] Cytology SEE RESULT 7, 8 finding [phone] BELOW CBC Auto Diff 08/25/2017 [facility] White Blood 7.8 10^3/uL N 3.5-10.8 [phone] Count Red Blood Count 2.74 10^6/uL Low [...] High 150-450 9 Comp Metabolic Panel 08/25/2017 [facility] Sodium 136 mmol/L N 133-145 [phone] Potassium 4.1 mmol/L N 3.5-5.0 Chloride 103 [...] Egfr 124.1 >60 10 Laboratory test 08/25/2017 [facility] C Reactive 15.84 mg/L High < 5.00 11 finding [phone] Protein Laboratory test 03/31/2017 In House Lab Strep Screen neg Neg finding (607)- - Laboratory test 01/08/2017 [facility] House [facility] Strep Screen positive Neg finding (607)- - Laboratory test 12/24/2016 In House Lab Strep Screen pos Neg finding (607)- - Laboratory test 05/30/2016 In House Lab Strep Screen NEG Neg finding (607)- - CBC Auto Diff 04/26/2016 [facility] White Blood 7.9 10^3/uL N 3.5-10.8 [phone] Count Red Blood Count 4.61 10^6/uL N [...] % 0 N Comp Metabolic Panel 04/26/2016 [facility] Sodium 138 mmol/L N 133-145 [phone] Potassium 4.0 mmol/L N 3.5-5.0 Chloride 102 [...] 112.5 N >60 12 Lipid Profile 04/26/2016 [facility] Triglycerides 335 mg/dL N 13 (Trig/Chol/HDL) [phone] Cholesterol 197 mg/dL N 14 HDL Cholesterol 47.9 mg/dL N 15 LDL Cholesterol 82 mg/dL N 16 Laboratory test 04/26/2016 [facility] TSH 1.54 N 0.34-5.60 17 finding [phone] (Thyroid mcIU/mL Stim Horm) Laboratory test 02/16/2015 In House Lab Strep NEG Neg finding (607)- - Screen Laboratory test 02/11/2015 [facility] Throat-Beta SEE RESULT 18 finding [phone] Strept BELOW Laboratory test 01/24/2015 In House Lab Strep NEG Neg finding (607)- - Screen Urine Culture And 11/24/2014 [facility] Urine (SEE NOTE) 19 Sensitivities [phone] Culture Urine DIP 11/24/2014 In House Lab Specific 1.025 High 1.01-1.02 (607)- - [place] Urine pH 6 5-6 Leukocytes TRACE Neg Urine Nitrites NEG Neg Total Protein, Urine TRACE Neg Urine Glucose NORM Norm Urine Ketones NEG Neg Urobilinogen NORM Norm Urine Bilirubin NEG Neg Urine Blood 250 High Neg HPV High 04/29/2014 [facility] Human Papillomavirus See Comment N 20 Risk [phone] Source HPV High Risk Type 16, PCR Negative N Negative HPV High Risk Type 18, PCR Negative N Negative HPV Other Risk types Negative N Negative 21 CBC No Diff 04/29/2014 [facility] White Blood 10.3 10 ^3/uL N 4.8-10.8 [phone] Count Red Blood Count 4.41 10^6/uL N [...] um3 Low 7.4-10.4 Comp Metabolic Panel 04/29/2014 [facility] Sodium 137 mmol/L N 133-145 [phone] Potassium 4.1 mmol/L N 3.7-5.6 Chloride 102 [...] 121.3 N >60 22 Laboratory test 04/29/2014 [facility] TSH (Thyroid 1.85 N 0.34-5.60 finding [phone] Stimulating Horm) IU/mL Lipid Profile 04/29/2014 [facility] Triglycerides 95 mg/dL N 23 (Trig/Chol/HDL) [phone] Cholesterol 156 mg/dL N 24 HDL Cholesterol 54.4 mg/dL N 25 LDL Cholesterol 83 mg/dL N 26 Urine DIP 04/29/2014 In House Lab Specific [place] 1.010 1.01-1.02 (607)- - Urine pH 6 5-6 Leukocytes NEG Neg Urine Nitrites NEG Neg Total Protein, Urine NEG Neg Urine Glucose NORM Norm Urine Ketones NEG Neg Urobilinogen NORM Norm Urine Bilirubin NEG Neg Urine Blood NEG Neg Laboratory test 04/29/2014 [facility] Cytology RUN DATE: finding [phone] 05/02/ <SEE NOTE> Urine DIP 10/05/2012 In House Lab Leukocytes POS Neg (607)- - Urine Nitrites NEG Neg Urine pH 5 5-6 Total Protein, Urine NEG Neg Urine Glucose NORM Norm Urine Ketones NEG Neg Urobilinogen NORM Norm Urine Bilirubin NEG Neg Urine Blood TRACE Neg Specific [place] NA Low 1.01-1.02 Laboratory test 10/05/2012 [facility] TSH (Thyroid 1.29 0.34-5.60 finding [phone] Stimulating Horm) miu/mL Lipid Profile 10/05/2012 [facility] Triglycerides 156 mg/dL 40-200 (Trig/Chol/HDL) [phone] Cholesterol 182 mg/dL Less than 200 HDL Cholesterol 58 mg/dL 40-60 28 Cholesterol/HDL Ratio 3.1 Average 1-4.44 LDL Cholesterol 92.8 mg/dL Less Than 100 29 Comp Metabolic Panel 10/05/2012 [facility] Sodium 134 mmol/L 133-145 [phone] Potassium 4.2 mmol/L 3.5-5.0 Chloride 105 mmol/L [...] 99.3 >60 30 CBC No Diff 10/05/2012 [facility] White Blood 8.6 10^ 3/uL 4.8-10.8 [phone] Count Red Blood Count 4.50 10^6/uL 4.0-5.4 Hemoglobin 13.7 g/dL 12.0-16.0 Hematocrit 40 % 35-47 Mean Corpuscular Volume 90 fL 80-97 Mean Corpuscular Hemoglobin 31 pg 27-31 Mean Corpuscular HGB Conc 34 g/dL 31-36 Red Cell Distribution Width 13 % 10.5-15 Platelet Count 380 10^3/uL 150-450 Mean Platelet Volume 7 um3 Low 7.4-10.4 Laboratory test 06/16/2012 [facility] Erythrocyte Sed 52 MM/HR High 0-15 finding [phone] Rate Lyme Western 04/20/2012 [facility] Lyme Igg Negative Negative Blot Specialty [phone] Western Blot Lyme Igg Bands Detected p23, kDa () Lyme Igm Western Blot Negative Negative Lyme Igm Bands Detected No bands detecte <SEE NOTE> kDa () 31 Lyme Disease Interpretation . () 32 Laboratory test 03/26/2011 In House Lab Strep Screen NEG Neg finding (607)- - Laboratory test 03/26/2011 [facility] Throat Culture NF 33 finding [phone] Full Laboratory test 03/07/2011 [facility] Cytology ------ ---- 34, 35 finding [phone] ------ <SEE NOTE> Genital Culture NF3 36 Urine DIP 03/07/2011 In House Lab Leukocytes NEG Neg (607)- - Urine Nitrites NEG Neg Urine pH 6 5-6 Total Protein, Urine NEG Neg Urine Glucose NORM Norm Urine Ketones NEG Neg Urobilinogen NORM Norm Urine Bilirubin NEG Neg Urine Blood 50+ High Neg Specific [place] NA Low 1.01-1.02 (HCG) 12/06/2010 [facility] Specific 1.030 1.010-1.030 Urine [phone] [place] Urine NEGATIVE Negative 37 PT W/Inr 11/30/2010 [facility] Inr 0.94 0.82-1.17 38 [phone] Protime 11.0 SEC 10.2-14.8 39 CBC No Diff 11/30/2010 [facility] White Blood 9.4 CUMM 4.8-10.8 [phone] Count Red Cell Count 4.47 CUMM 4.2-5.4 Hemoglobin 13.8 g/dL 12.0-16.0 Hematocrit 40 % 35-47 Mean Corpuscular Volume 89 um3 79-97 Mean Corpuscular Hemoglob 31 pg 27-31 Mean Corpuscular HGB Cone 35 g/dL 32-36 Redcell Distribution WDTH 13 % 10.5-15 Platelet Count 426 CUMM 150-450 Mean Platelet Volume 6.8 um3 Low 7.4-10.4 Laboratory test 11/30/2010 [facility] Amylase 76 U/L 20-120 40 finding [phone] Lipase 22 U/L 22-51 Troponin-I 0 NG/ML 0-0.06 41 Comp Metabolic Panel 11/30/2010 [facility] Sodium 136 mmol/L 135-145 [phone] Potassium 3.8 mmol/L 3.5-5.0 Chloride 105 mmol/L [...] 125.1 > 60 44 Laboratory test 11/30/2010 [facility] PTT (Aptt) 33.9 25.15-38.53 finding [phone] D Dimer Quantitative < 200 NG/ML Less Than 230 45 CBC With Manual 10/31/2009 [facility] White Blood 7.0 CUMM 4.8-10.8 Diff [phone] Count Red Cell Count 4.54 CUMM 4.2-5.4 [...] 3.2 RBC Morphology NORMAL CMP Stat 10/22/2009 [facility] Sodium 141 mmol/L 135-145 [phone] Potassium 3.5 mmol/L 3.5-5.0 Chloride 104 mmol/L [...] 100.7 > 60 50 Laboratory test 10/22/2009 [facility] Amylase Stat 82 U/L 30-125 finding [phone] Lipase 27 U/L 22-51 CBC With 10/22/2009 [facility] White Blood 13.6 CUMM High 4.8-10.8 Manual Diff [phone] Count Red Cell Count 4.95 CUMM 4.2-5.4 [...] Neutrophil Count 12.2 Anisocytosis SLIGHT Urinalysis 10/22/2009 [facility] Ua Color YELLOW Yellow W/Microscopic [phone] Appearance-Urine CLEAR Clear Specific [place]-Ur 1.021 1.010-1.030 Esterase-Urine NEGATIVE Negative Nitrite NEGATIVE Negative Oxncuzrxkibj-Mt-XZC NEGATIVE Negative Protein-Urine NEGATIVE Negative PH-Urine 7.0 5-9 Blood-Urine TRACE Abnormal Negative Ketones-Urine NEGATIVE Negative Bilirubin-Ur NEGATIVE Negative Glucose-Urine NEGATIVE Negative WBC-Urine 0-2 0-5 RBC-Urine 0-2 0-2 Mucus Urine SMALL None Epith Cells-Ur FEW None Bacteria-Urine TRACE None Vitamin D.25 09/29/2009 [facility] 25-Hydroxy Vitamin 21 ng/mL () Hydroxy [phone] D2 25-Hydroxy Vitamin D3 15 ng/mL () 25-Hydroxy Vitamin D Total 36 ng/mL () 51 Vitamin D.25 08/10/2009 [facility] 25-Hydroxy Vitamin <4.0 ng/mL () Hydroxy [phone] D2 25-Hydroxy Vitamin D3 24 ng/mL () 25-Hydroxy Vitamin D Total 24 ng/mL Abnormal () 52 Lipid Profile 08/10/2009 [facility] Triglyceride 126 mg/dL 40-200 (Trig/Chol/HDL) [phone] Cholesterol 177 mg/dL Less Than 200 53 High Density Lipoprotein 47 mg/dL 40-60 54 Cholesterol/HDL Ratio 3.77 AVERAGE 1-4.44 Low Density Lipoprotein 105 mg/dL High Less Than 100 55 1 [id number] 2 SEE RESULT BELOW Name: YVONNE OLIVER : [address]: Masood Davis MD Acct: [id number] Unit: [id number] AGE: 53 Location: [facility] Re02/19/19 SEX: F Status: DEP ER SPEC: [id number] DRAGAN: 02/19/[address] [facility] [address]: Masood Davis MD REQ: [id number] RECD: 02/19/19 STATUS: AMAN GUO DR: Edward Villalpando SUPERVISOR PACKING ROOM _ SOURCE: URINE SPDESC: ORDERED: Urine Culture COMMENTS: [id number] Procedure Result Reported Site Urine Culture Final 02/20/19- 1617 ML No growth of clinically significant organisms * ML - Main Lab . END OF REPORT DEPARTMENT OF PATHOLOGY, [address] [place] [address] Carlos Jennings M.D. Director [facility] # [id number] 3 Billet Checker: [id number] Test Disclaimer: Positive bacteria, red blood cells, white blood cells, early , low specific gravity, and other factors may cause false positive or negative results. It is recommended to retest unexpected results within 24 to 72 hours with a serum test when applicable. If is still suspected, please repeat test after 48 to 72 hours. 4 Billet Checker: [id number] 5 Billet Checker: [id number] 6 SEE RESULT BELOW Name: YVONNE OLIVER : [address]: Lorelei Jasso DO Acct: [id number] Unit: [id number] AGE: 52 Location: ENDO Re12/04/17 SEX: F Status: REG REF SPEC: [id number] DRAGAN: 12/04/17-[address] [facility] [address]: Lorelei Jasso DO REQ: [id number] RECD: 12/04/17 STATUS: BRENDA GUO DR: Edward Villalpando SUPERVISOR PACKING ROOM _ ORDERED: LEVEL 4 FINAL DIAGNOSIS Colon, [...] 1030 END OF REPORT DEPARTMENT OF PATHOLOGY, [address] [place] [address] Carlos Jennings M.D. Director [facility] # [id number] 7 [id number] 8 SEE RESULT BELOW Name: YVONNE OLIVER : [address]: Edward Villalpando NP Acct: [id number] Unit: [id number] AGE: 52 Location: [facility] Re11/14/17 SEX: F Status: REG REF SPEC: [id number] DRAGAN: 11/14/[address]: Edward Villalpando NP REQ: [id number] RECD: 11/14/17 STATUS: SOUT _ ORDERED: TP IMAGE ANAL, HPV/Thin Prep, HPV 16/18 GENE COMMENTS: [id number] Negative for Intraepithelial lesion or Malignancy A. [...] and 68. Signed (signature on file) MC Colvin(ASC) 11/17 1327 This Pap test was evaluated with the assistance of the ACTION SPORTSp Test Imaging System. Due to cytologic findings at the cut out machine operator microscope, comprehensive manual rescreening by a Stitch Cleaner may be required. The Pap Smear is [...] performed at Main Lab DEPARTMENT OF PATHOLOGY, [address] [place] [address] Carlos Jennings M.D. Director [facility] # [id number] 9 Platelet count confirmed by smear estimate. [...] 160-189 mg/dL Very High: >189 mg/dL 17 [id number] 18 SEE RESULT BELOW Name: YVONNE OLIVER : [address]: Gabriela Barajas MD Acct: [id number] Unit: [id number] AGE: 49 Location: [facility] Re02/11/15 SEX: F Status: DEP ER SPEC: [id number] DRAGAN: 02/11/15-[address] [facility] [address]: Gabriela Barajas MD REQ: [id number] RECD: 02/12/15 STATUS: AMAN GUO DR: Edward Villalpando SUPERVISOR PACKING ROOM _ SOURCE: THROAT SPDESC: ORDERED: Throat Beta Str Procedure Result Verified Site Throat Beta Strep Culture Final 02/15/15- 0832 ML Organism 1 Negative Group A Strep * ML - MAIN LAB ([facility]) . END OF REPORT * ML=Testing performed at Main Lab DEPARTMENT OF PATHOLOGY, [facility] [employer] [place], [place] [address] Carlos Jennings M.D. Director [facility] # [id number] 19 RUN DATE: 11/26/14 [facility] LAB LIVE PAGE 1 RUN TIME: [address] [place] [address] Specimen Inquiry Name: YVONNE OLIVER : [address]: Edward Villalpando NP Acct: [id number] Unit: [id number] AGE: 49 Location: [facility] Re11/24/14 SEX: F Status: REG REF SPEC: [id number] DRAGAN: 11/24/[address]: Edward Villalpando NP REQ: [id number] RECD: 11/24/141246 STATUS: COMP _ SOURCE: URINE SPDESC: ORDERED: Urine Culture QUERIES: Provider Requisition # [id number] Procedure Result Verified Site Urine Culture Final 11/26/14- 1005 L No Growth Day 2 (<1,000 CFU/mL) END OF REPORT * ML=Testing performed at Main Lab DEPARTMENT OF PATHOLOGY, [address] [place] [address] Carlos Jennings M.D. Director [facility] # [id number] 20 RESULT: Ectocervical/Endocervical 21 The following Other High Risk HPV types were not detected: 31, 33, 35, 39, 45, 51, 52, 56, 58, 59, 66, and 68 Test Performed by: [address] [address] Air Traffic Instructor: Julio Azevedo III, M.D. 22 Because ethnic [...] Very High >189 27 RUN DATE: 05/02/14 [facility] LAB LIVE PAGE 1 RUN TIME: 1417 [address] [place], [place] [address] Specimen Inquiry Name: YVONNE OLIVER : [address]: Edward Villalpando NP Acct: [id number] Unit: [id number] AGE: 48 Location: [facility] Re04/29/14 SEX: F Status: REG REF SPEC: [id number] DRAGAN: 04/29/14-1003 ROXY CRUZ: Edward Villalpando SUPERVISOR PACKING ROOM REQ: [id number] RECD: 04/29/14-1322 STATUS: SOUT _ ORDERED: IMAGE ANALYSIS, HPV/Thin Prep FINAL DIAGNOSIS Negative for Intraepithelial lesion or Malignancy COMMENTS: Specimen sent to [facility] in [place], [place] on 05/02/14 by ASHLEY at 1037. Results will be reported separately. A. Ectocervical/Endocervical Specimen Adequacy: Satisfactory of evaluation Transformation zone component identified Patient Information: HPV: High risk HPV DNA testing regardless of pap results. Actual Specimen Date: 05/01/14 Last Menstrual Date: 04/04/14 ?: N Signed (signature on file) MC Cordero (ASCP) 05/02 1417 This Pap test was evaluated with the assistance of the HotLinkPrep Test Imaging System. Due to cytologic findings at the cut out machine operator microscope, comprehensive manual rescreening by a Stitch Cleaner may be required. The Pap Smear is [...] performed at Main Lab DEPARTMENT OF PATHOLOGY, [address] [place] [address] Carlos Jennings M.D. Director [facility] # [id number] 28 HDL Interpretation: Undesirable: High Risk: Less [...] Test performed by Immunoblot. Test Performed by: [place] [address] Air Traffic Instructor: Julio Azevedo III, M.D. 33 NORMAL THROAT ANUSHKA 34 Specimen Description: VAGINAL 35 ---- RUN DATE: 03/08/11 [facility] NMI LIVE PAGE 1 RUN TIME: 1456 Specimen Inquiry RUN USER: INTERFACE -- Name: YVONNE OLIVER Status: REG REF Re03/07/11 Age/Sex: 45/F Unit#: [id number] Location: [facility]. : [birth year] -- Specimen: [id number] [facility] Spec Date: 03/07/[address]: Edward levy NP Spec Type: CYTOLOGY Received: 03/08/11 Copies to: SOURCE ECTOCERVICAL/ENDOCERVICAL Thin Prep with Reflex HPV Test PATIENT INFORMATION ACTUAL COLLECTION DATE: 03/07/11 LAST MENSTRUAL PERIOD: 02/17/11 ADEQUACY OF SPECIMEN Satisfactory for evaluation * Transformation zone component identified * DIAGNOSIS NEGATIVE FOR INTRAEPITHELIAL LESION OR MALIGNANCY * This Pap test was evaluated with the assistance of the ThinPrep Pap Test Imaging System. However, due to technical or cytologic issues, the imaging could not be completed. Comprehensive manual rescreening by a Stitch Cleaner was performed. The Pap Smear is a [...] three years. Initial evaluation performed by Abdoul CROWELL([facility]) 03/08/11 Final Interpretation electronically signed by: Abdoul CROWELL([facility]) 03/08/11 1454 -- -- DEPARTMENT OF PATHOLOGY, [address] [place] [address] [facility] Permit #[id number] Carlos Jennings M.D. Director Pretty Hogan M.D. Circle Beveler Dir mushtaq -- 36 NORMAL GENITAL ANUSHKA [...] 0.06 ng/mL NOT SUPPORTIVE OF DIAGNOSIS OF [place] 0.06 - 0.50 ng/ml INDETERMINATE: SUGGEST SERIAL STUDIES IF CLINICALLY INDICATED. Greater than 0.5 ng/mL CONSISTENT WITH DIAGNOSIS OF [place] . 42 Anion gap measurement may be of limited value in the presence of any alkalosis, especially in a combined acid base disorder. . 43 A metabolite of Naproxen, O-desmethylnaproxen, has been shown to interfere with the Jendrassik-Elbe method for measuring total bilirubin. Samples from [...] change was based on recommendations from the [employer]. 48 Please note change in [...] normal population are 25-80 Test Performed by: [facility] Med and Pathology [address] [place] [address] Air Traffic Instructor: Julio Azevedo III, M.D. 52 Interpretation: 10-24 (mild to moderate deficiency) -- REFERENCE VALUE -- 25-HYDROXY D TOTAL (D2+D3) Optimum levels in the normal population are 25-80 Test Performed by: [facility] [address] [place] [address] Air Traffic Instructor: Julio Azevedo III, M.D. 53 CHOLESTEROL INTERPRETATION: [...] MG/DL Procedures Date Code Description Status 12/04/2017 90269971 Colonoscopy Completed 11/14/2017 84780 EKG, at Least 12 Leads w/Interpretation and Report Completed 07/18/2011 33952 EKG, at Least 12 Leads w/Interpretation and Report Completed 08/06/2010 52223 Nebulizer Treatment Completed Encounters Type Date Location Provider Dx Diagnosis Office Visit 11/30/2018 Main Office Cale Guerrero J01.90 Acute sinusitis, 4:30p unspecified Office Visit 11/23/2018 Main Office Cale Guerrero J01.90 Acute sinusitis, 8:45a unspecified Office Visit 04/27/2018 Main Office Edward Villalpando, F32.89 Other specified 4:30p PHYSICAL BIOCHEMIST-C depressive episodes J45.909 Unspecified asthma, uncomplicated Office Visit 11/14/2017 9:30a Main Office Edward Villalpando, Z00.00 Encntr for general PHYSICAL BIOCHEMIST-C adult medical exam w/o abnormal findings Z12.31 Encntr screen mammogram for malignant neoplasm of breast Office Visit 10/09/2017 8:45a Main Office Cale Guerrero J06.9 Acute upper MD respiratory infection, unspecified Office Visit 08/25/2017 2:00p Main Office Gabby Wall18.9 PneumoniaMD unspecified organism Office Visit 08/15/2017 12:15p Main Office Karolyn Pierre18.9 Nevin Mcnamara M.D. unspecified organism Office Visit 08/07/2017 9:30a Main Office Edward Villalpando J20.9 Acute bronchitis, PHYSICAL BIOCHEMIST-C unspecified Office Visit 03/31/2017 3:45p Main Office Edward Villalpando J02.0 Streptococcal PHYSICAL BIOCHEMIST-C pharyngitis Office Visit 01/08/2017 10:45a Main Office Gabby Alfonso02.0 Streptococcal PHYSICAL BIOCHEMIST-C pharyngitis Office Visit 12/24/2016 9:00a Main Office Ching Xie, J02.0 Streptococcal PHYSICAL BIOCHEMIST-C pharyngitis Office Visit 06/20/2016 1:45p Main Office Edward Villalpando, J18.9 Pneumonia, PHYSICAL BIOCHEMIST-C unspecified organism Office Visit 05/30/2016 4:30p Main Office Edward Villalpando, J30.9 Allergic rhinitis, PHYSICAL BIOCHEMIST-C unspecified Office Visit 04/26/2016 8:45a Main Office Edward Villalpando, Z00.00 Encntr for general PHYSICAL BIOCHEMIST-C adult medical exam w/o abnormal findings N64.59 Other signs and symptoms in breast G47.00 Insomnia, unspecified E66.9 Obesity, unspecified J06.9 Acute upper respiratory infection, unspecified Office Visit 01/09/2016 10:45a Main Office Namwntmara RTanisha F32.8 Other depressive Storm, PHYSICAL BIOCHEMIST-C episodes Office Visit 10/16/2015 9:30a Main Office Namwntmara R. 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 616.10 Vaginitis & Storm, PHYSICAL BIOCHEMIST-C Vulvovaginitis Unspec Office Visit 10/05/2012 9:00a Main Office Shawnti R. V70.0 Examination General Storm, PHYSICAL BIOCHEMIST-C Medical Routine AT [facility] V72.62 Laboratory Exam Ordered as Part Of Routine General Med Exam 308.9 Stress Reaction Unspec Acute Office Visit 07/27/2012 11:45a Main Office Namwcelia R. Kwasi, 724.5 Backache Unspec PHYSICAL BIOCHEMIST-C Office Visit 06/16/2012 2:15p Main Office Shawnti R. Storm, 308.9 Stress Reaction PHYSICAL BIOCHEMIST-C Unspec Acute 723.1 Cervicalgia 278.00 Obesity Unspec Office Visit 05/21/2012 3:00p Main Office Shawnti R. 723.1 Cervicalgia Storm, PHYSICAL BIOCHEMIST-C Office Visit 05/04/2012 11:00a Main Office Shawnti R. 308.9 Stress Reaction Storm, PHYSICAL BIOCHEMIST-C Unspec Acute Office Visit 04/20/2012 11:30a Main Office Shawnti R. 308.9 Stress Reaction Storm, PHYSICAL BIOCHEMIST-C Unspec Acute 782.1 Rash & Other Nonspec Skin Eruption Office Visit 03/05/2012 11:15a Main Office Shawnti R. 465.9 URI Upper Storm, PHYSICAL BIOCHEMIST-C Respiratory Infections Acute Unspec Sites Office Visit 12/13/2011 11:15a Main Office Shawnti R. 112.89 Candidiasis Other Storm, PHYSICAL BIOCHEMIST-C 308.9 Stress Reaction Unspec Acute Office Visit 10/28/2011 10:30a Main Office Shawnti R. 386.10 Vertigo Peripheral Storm, PHYSICAL BIOCHEMIST-C Unspec 784.0 Headache 308.9 Stress Reaction Unspec Acute 373.11 Hordeolum Externum Office Visit 10/15/2011 11:15a Main Office Shawnti R. 386.10 Vertigo Peripheral Storm, PHYSICAL BIOCHEMIST-C Unspec 308.9 Stress Reaction Unspec Acute 373.11 Hordeolum Externum Office Visit 10/01/2011 11:15a Main Office Shawnti R. 386.10 Vertigo Peripheral Storm, PHYSICAL BIOCHEMIST-C Unspec 308.9 Stress Reaction Unspec Acute Office Visit 09/30/2011 10:45a Main Office Shawnti R. 311 Depressive Disorder Storm, PHYSICAL BIOCHEMIST-C Not Elsewhere Spec Office Visit 09/09/2011 9:45a Main Office Shawnti R. 789.00 Pain Abdominal Storm, PHYSICAL BIOCHEMIST-C Unspec Site 311 Depressive Disorder Not Elsewhere Spec Office Visit 08/08/2011 10:00a Main Office Shawnti R. Storm, 789.00 Pain Abdominal PHYSICAL BIOCHEMIST-C Unspec Site 311 Depressive Disorder Not Elsewhere Spec Office Visit 07/18/2011 11:00a Main Office Shawnti R. Storm, 724.5 Backache Unspec PHYSICAL BIOCHEMIST-C 789.00 Pain Abdominal Unspec Site 786.51 Pain Precordial V04.81 Need For Prophylactic Vaccination & Inoculation/Influenza Office Visit 03/26/2011 10:00a Main Office Shawnti R. Storm, PHYSICAL BIOCHEMIST-C 784.1 Throat Pain 883.0 Open Wound Finger(S) W/O Complication 300.00 Anxiety State Unspec 462 Pharyngitis Acute Office Visit 03/07/2011 2:15p Main Office Shawnti R. 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 Storm, 466.0 Bronchitis Acute PHYSICAL BIOCHEMIST-C 309.0 Adjustment Disorder With Depression Office Visit 12/28/2010 11:45a Main Office Shawnti R. Storm, 466.0 Bronchitis Acute PHYSICAL BIOCHEMIST-C Office Visit 08/27/2010 2:30p Main Office Shawnti R. Storm, 311 Depressive Disorder PHYSICAL BIOCHEMIST-C Not Elsewhere Spec Office Visit 08/10/2010 3:30p Main Office Shawnti R. Storm, 466.0 Bronchitis Acute PHYSICAL BIOCHEMIST-C 311 Depressive Disorder Not Elsewhere Spec Office Visit 08/06/2010 11:00a Main Office Shawnti R. Storm, 466.0 Bronchitis Acute PHYSICAL BIOCHEMIST-C Office Visit 07/24/2010 10:30a Main Office Shawnti R. Kwasi, 921.2 Contusion Orbital PHYSICAL BIOCHEMIST-C Tissues V04.81 Need For Prophylactic Vaccination & Inoculation/Influenza Office Visit 06/11/2010 11:15a Main Office Shawnti R. 466.0 Bronchitis Acute Storm, PHYSICAL BIOCHEMIST-C Office Visit 11/24/2009 3:30p Main Office Shawnti R. 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, PHYSICAL BIOCHEMIST-C Complication 278.00 Obesity Unspec V70.0 Examination General Medical Routine AT Health Care Facility 311 Depressive Disorder Not Elsewhere Spec Plan of Treatment Future Appointment(s):03/24/2019 11:45 am - PAOLO Garcia at [facility]03/16/2019 - BERENICE Garcia-CJ20.9 Acute bronchitis, unspecifiedNew Medication:Prednisone 50 mg - one pill by mouth daily for 5 days for breathingAlbuterol Sulfate (2.5 mg/3ML) 0.083% - use one vial in nebulizer every 4 hours if needed for breathingNebulizer Kit/Tubing/Mouthpiece - use to deliver albuterol via nebulizer four times a dayComments:treat with prednisone and albuterol as needed, script for nebulizer for home use as albuterol HFA has not been as glwubtajgJ49.3 Candidiasis of vulva and vaginaNew Medication: Fluconazole 150 mg - 1 by mouth now, may repeat in 1 week if sx still presentNystatin 220521 Unit/GM - apply small amount to vulva three times daily until resolvedComments:treat with oral diflucan .... can also use topical nystatin three times daily as needed, increase probiotic rich foods in diet, may need additional treatment given current prednisone use
--- NOTE | 2019-03-29 12:40 | ED ---
Asthma - HPI Summary HPI Summary: This pt is a 53 y/o female presenting to [facility] via EMS for SOB today. Pt reports she was diagnosed with asthma last year and currently is being treated for bronchitis for the past 5 days with antibiotics. She states today she couldn 't clear her chest and was coughing so much she couldn't "breathe past it." Pt notes she tried to take her inhaler and panicked. Currently reports feeling better now, although she has some chest pain from the cough. She describes productive cough with "cloudy" sputum. Pt takes Tessalon Perles at night. She is followed up by Edward Villalpando NP, and last saw her 4 days ago where pt was told her lungs were clear. Pt was also given all her inhalers by Edward Villalpando NP, 2 weeks ago. 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 Pt is allergic to Zpack, reaction is abd pain. - History of Current Complaint Stated Complaint: ASTHMAN ATTACK PER Hx Obtained From: Patient Hx Last Menstrual Period: ~1 WEEK AGO Onset/Duration: Lasting Minutes Timing: Minutes Initial Severity: Moderate Current Severity: Mild Location/Character: Cough (Productive) Aggravating Symptoms: Exertion Alleviating Symptoms: Rest Associated Signs and Symptoms: Positive: Shortness of Breath, Other - POSITIVE: chest pain now after coughing. - Allergy/Home Medications Allergies/Adverse Reactions: Allergies Allergy/AdvReac Type Severity Reaction Status Date / Time azithromycin Allergy Stomach Verified 02/19/19 16:05 Cramps PMH/Surg Hx/FS Hx/Imm Hx Endocrine/Hematology History: Denies: Hx Anticoagulant Therapy Respiratory History: Reports: Hx Asthma - Cancer History Hx Chemotherapy: No Hx Radiation Therapy: No - Surgical History Surgical History: Yes Surgery Procedure, Year, and Place: CHOLECYSTECTOMY, c-sec, ovarian cyst Infectious Disease History: Denies: Traveled Outside the [place] in Last 30 Days - Family History Known Family History: Positive: Hypertension - both parents, Diabetes, Other - glaucoma - mother and grandfather Family History: sister - rectal CA, grandmother - vaginal CA - Social History Alcohol Use: Rare Substance Use Type: Reports: None Smoking Status (MU): Never Smoked Tobacco Review of Systems Negative: Fever Positive: Chest Pain Positive: Shortness Of Breath, Cough All Other Systems Reviewed And Are Negative: Yes Physical Exam - Summary Physical Exam Summary: Appearance: The patient is well-nourished in no acute distress and in no acute pain. Skin: The skin is warm and dry and skin color reflects adequate perfusion. HEENT: The head is normocephalic and atraumatic. The pupils are equal and reactive. The conjunctivae are clear and without drainage. Nares are patent and without drainage. Mouth reveals moist mucous membranes and the throat is without erythema and exudate. The external ears are intact. The ear canals are patent and without drainage. The tympanic membranes are intact. Neck: the neck is supple with full range of motion and non-tender. There are no carotid bruits. There is no neck vein distension. Respiratory: Chest is non-tender. Lungs are clear to auscultation and breath sounds are symmetrical and equal. Cardiovascular: Heart is regular rate and rhythm. There is no murmur or rub auscultated. There is no peripheral edema and pulses are symmetrical and equal. Abdomen: The abdomen is soft and non-tender. There are normal bowel sounds heard in all four quadrants and there is no organomegaly palpated. Musculoskeletal: There is no back tenderness noted. Extremities are non-tender with full range of motion. There is good capillary refill. There is no peripheral edema or calf tenderness elicited. Neurological: Patient is alert and oriented to person, place and time. The patient has symmetrical motor strength in all four extremities. Psychiatric: The patient has an appropriate affect and does not exhibit any anxiety or depression. Triage Information Reviewed: Yes Vital Signs Reviewed: Yes Diagnostics - Laboratory Lab Statement: Any lab studies that have been ordered have been reviewed, and results considered in the medical decision making process. - Radiology Chest XR Radiology Interpretation Completed By: Radiologist Summary of Radiographic Findings: IMPRESSION: No active cardiopulmonary disease. Dr. Taylor has reviewed this report. Re-Evaluation - Re-Evaluation First Eval Re-Evaluation Time: 14:08 Comment: Reviewed results with pt. She will be discharged home. Asthma Course/Dx - Course Course Of Treatment: Ms. Chong has been being treated for bronchitis by her PCP and is currently midway through prescription. She was working and had an episode of shortness of breath. She sometimes has problems with breathing while she is working secondary to the smells. And she is been having bronchospasm related to the bronchitis she currently has. She has an albuterol inhaler which she used today. By the time she got here she is feeling much better. A chest x-ray was obtained and was unremarkable and I am going to give her a couple days off work. - Diagnoses Provider Diagnoses: Bronchitis, Bronchospasm Discharge - Sign-Out/Discharge Documenting (check all that apply): Patient Departure - Discharge home Patient Received Moderate/Deep Sedation with Procedure: No - Discharge Plan Condition: Stable Disposition: HOME Patient Education Materials: Acute Bronchitis (ED), Bronchospasm (ED) Forms: *Work Release Referrals: Edward Villalpando [employer] [employer]STER [Primary Care Provider] - Additional Instructions: Follow up with your primary care provider in 2-3 days. RETURN TO THE ED FOR ANY WORSENING OR NEW SYMPTOMS. - Billing Disposition and Condition Condition: STABLE Disposition: Home - Attestation Statements Document Initiated by Tahir: Yes Documenting Scribe: Gabriela Smith Provider For Whom Tahir is Documenting (Include Credential): Andres Taylor MD Scribe Attestation: Gabriela Diaz, scribed for Andres Taylor MD on 03/29/19 at 1637. Scribe Documentation Reviewed: Yes Provider Attestation: The documentation as recorded by the Gabriela marshall accurately reflects the service I personally performed and the decisions made by me, Andres Taylor MD Status of Scribe Document: Viewed
[2019-03-29 13:57] VITALS: BP 164/90
== END 2019-03-29 14:16 | disposition home or self-care (01) ==
LOC: ED 12:16
DX: J40 Bronchitis, not specified as acute or chronic (principal); J98.01 Acute bronchospasm; R06.02 Shortness of breath; R05 Cough; R07.9 Chest pain, unspecified
CPT/HCPCS: 71046; 99282